=== PATIENT | male | born 1995 | race Caucasian/White ===

== ENCOUNTER 2017-10-25 23:07 | Emergency (ER) | payer MEDICAID, SELFPAY ==
[2017-10-25 23:08] VITALS: BP 148/87; PULSE 102; RESP 16; TEMP 36.4; O2SAT 96; BMI 33.0
--- NOTE | 2017-10-26 00:05 | ED.VISSUMM ---
- ER Visit Summary Date of Service: 10/26/17 Chief Complaint: Left thumb laceration History of Present Illness: The patient is a 21 M with no medical history who presents for a left thumb laceration that occurred 8 hours ago at work. Patient was opening packaging, and the knife slipped, slicing his left thumb. He controlled the bleeding and covered it, finishing his shift. Now he presents for evaluation. He states it hurt when it first occurred, but presently he has no pain. No loss of function. Tetanus was updated last year. Patient is right-handed. Physical Examination: An alert, in no distress. No increased work of breathing. Left hand shows a 13 mm superficial laceration to the palmar surface of the distal left thumb. Mild gaping of the incision. Distal sensation and cap refill are intact. Patient has full active flexion and extension of the IP joint. Remainder of exam unremarkable. Test Results: [] Emergency Department Course and Treatment: Patient presents with a superficial laceration to his left thumb. Patient had already copiously irrigated it with tap water. Given that the laceration was superficial and small, 1% lidocaine was used to locally block the incision site rather than performing a digital block. After anesthesia was achieved, the edges were approximated using 3 simple interrupted sutures, 5-0 Ethilon. Patient tolerated the procedure well. Bacitracin was applied and the wound was dressed. Patient was given wound care instructions and will have the sutures removed in 7-10 days. Patient was discharged home. Treatment Plan: [] Disposition: [] Impression: 13 mm left thumb laceration This note was generated with [employer] dictation software. It may contain incorrect words, spelling, and punctuation that were not noted in review of the chart prior to signing ED Disposition - Plan for ED Patient: Disposition: Home or Assisted Living Chief Complaint: Laceration Instructions: ED Laceration Hand Referrals: Derrick Downey MD [NON-STAFF] - Additional Instructions: Keep your thumb clean and well protected. Do not soak it in any dirty water. Have the sutures removed in 7-10 days by a healthcare provider. You have any concern for infection, such as pus draining from the incision, red streaking or severe pain, return for another evaluation. Use [id number] pain medication as needed for pain. If you have any worsening of your condition or any new concerning symptoms, please return immediately to the emergency department for another evaluation.
--- NOTE | 2017-10-26 00:50 | ED.DEP ---
ED Disposition - Plan for ED Patient: Disposition: Home or Assisted Living Chief Complaint: Laceration Instructions: ED Laceration Hand Referrals: Derrick Downey MD [Primary Care Provider] - Additional Instructions: Keep your thumb clean and well protected. Do not soak it in any dirty water. Have the sutures removed in 7-10 days by a healthcare provider. You have any concern for infection, such as pus draining from the incision, red streaking or severe pain, return for another evaluation. Use [id number] pain medication as needed for pain. If you have any worsening of your condition or any new concerning symptoms, please return immediately to the emergency department for another evaluation.
[2017-10-26 00:58] VITALS: BP 128/72; PULSE 87; RESP 18; O2SAT 96
== END 2017-10-26 00:58 | disposition home or self-care (01) ==
LOC: ED 10-26 00:57
PROVIDERS: Emergency Provider Emergency Medicine
DX: S61.012A Laceration without foreign body of left thumb without damage to nail, initial encounter (principal); W26.0XXA Contact with knife, initial encounter; Y93.89 Activity, other specified; Y92.89 Other specified places as the place of occurrence of the external cause; Y99.0 Civilian activity done for income or pay; Z72.0 Tobacco use
CPT/HCPCS: 12001; 99283

== ENCOUNTER 2017-12-09 09:22 | Emergency (ER) | payer MEDICAID, SELFPAY ==
[2017-12-09 09:22] VITALS: BP 146/90; PULSE 83; RESP 16; TEMP 36.7; O2SAT 98; BMI 33.7
--- NOTE | 2017-12-09 09:39 | CT_ITS ---
STUDY: CT BRAIN WITHOUT CONTRAST REASON FOR EXAM: Male, 22 years old. Frontal headache. RADIATION DOSAGE (If Supplied By Facility): CTDIvol = ( 44.99 ) mGy, DLP = ( 796.11 ) mGycm TECHNIQUE: Transaxial CT imaging of the brain was performed without administration of intravenous contrast material. Individualized dose optimization techniques were used for this CT. COMPARISON: None. FINDINGS: Normal soft tissue structures. Normal calvarium. Normal size ventricles and extra-axial spaces for the patient's age. Normal white matter tracts of the cerebral hemispheres. Normal basal ganglia and thalami. Normal brainstem. Normal cerebellum. There is no intracranial hemorrhage. There are no findings of an acute ischemic infarction. Normal visualized paranasal sinuses. There is a tube extending from the left mastoid air cells into the left middle ear. There is loss of aeration of the left mastoid air cells. CT/Brain/Head without Contrast IMPRESSION: No acute intracranial process as described above. Electronically Signed: Hemal Villanueva MD at 10:00 EDT Tel , Service support ,
--- NOTE | 2017-12-09 09:42 | ED.DCSUM_ITS ---
- ER Visit Summary Date of Service: 12/09/17 Chief Complaint: [] Frontal headache for 5 months intermittently History of Present Illness: The patient is a 22 M [] ports paroxysms of headaches frontally located for 5 months no fever no cough no head trauma #6 paresthesias no change in vision or neck stiffness no chest or abdominal pain review of systems are negative no medications no past history non-smoker no drug use no family history of any DOOR ASSEMBLER disorders or personal history Works when he gets a headache it is quite intense usually resolves ibuprofen he was scheduled to see a physician sometime later this month but he had occurrence of the headache today and his family made him come into the emergency department as he has not been evaluated again review of systems are negative works as a cook Physical Examination: [] Vital signs are within normal range is afebrile he is resting cupping the bed he points directly to the frontal forehead is a focus of the pain his extraocular movements are full his vision is normal his neck is supple HEENT exam normal speech is normal cranial nerves normal neck supple lungs clear heart tones normal abdomen soft nontender upper lower extremities unremarkable his strength and sensation are normal his gait is strong sitting stable no nystagmus no cerebellar findings Test Results: [] Emergency Department Course and Treatment: [] Given his complaints and his age and the duration of his headache a CT scan is obtained of head CT showed nothing acute there is a tube extending from the left mastoid air cell into the canal see that report but again nothing acute the patient did not recall that I reviewed that finding with him at this time explained to him the fact that he needs further outpatient management that there is nothing at this time to suggest a life-threatening cause to his headaches but he may require more definitive management head CT referral to neurology etc. he has an appointment see primary care physician he will be started on Motrin 600 3 times daily he will return for change in symptoms he is very comfort with this plan will follow-up and agrees to outpatient management Treatment Plan: [] Disposition: [] Home stable Impression: [] Headache intermittently for 5 months This note was generated with [employer] software. It may contain incorrect words, spelling, and punctuation that were not noted in review of the chart prior to signing ED Disposition - Plan for ED Patient: Chief Complaint: Headache Referrals: Care Physician,No Primary [Primary Care Provider] -
--- NOTE | 2017-12-09 10:20 | ED.DEP ---
ED Disposition - Plan for ED Patient: Chief Complaint: Headache Instructions: ED Cephalgia Unspecified Prescriptions: Naproxen [Naprosyn] 500 mg PO BID PRN #20 tab Referrals: Care Physician,No Primary [Primary Care Provider] - Mark Bass MD [STAFF PHYSICIAN] -
[2017-12-09 10:27] VITALS: PULSE 79; RESP 14; O2SAT 97
[2017-12-09] MEDS: Naproxen 500 MG Tablet PO (10:27)
== END 2017-12-09 10:28 | disposition home or self-care (01) ==
LOC: ED 10:00
PROVIDERS: Emergency Provider Emergency Medicine
DX: R51 Headache (principal)
CPT/HCPCS: 70450; 99283

== ENCOUNTER 2018-05-02 00:27 | Emergency (ER) | payer SELFPAY ==
[2018-05-02 00:29] VITALS: BP 145/89; PULSE 100; RESP 17; TEMP 36.7; O2SAT 94; BMI 35.8
--- NOTE | 2018-05-02 00:59 | RAD_ITS ---
STUDY: X-RAY - LUMBAR SPINE REASON FOR EXAM: Male, 22 years old. LOW BACK PAIN TECHNIQUE: 3 view(s) of the lumbar spine were obtained. COMPARISON: None FINDINGS: Normal lumbar lordosis. There is no substantial scoliosis. There is a normal alignment of the vertebrae. Normal vertebral bodies and endplates. Normal disc space heights. The soft tissue structures are unremarkable. RAD/Lumbar Spine 2 or 3 Views IMPRESSION: Normal x-ray examination of the lumbar spine. Electronically Signed: Seferino Spring MD at 2:01 EST Tel , Service support ,
--- NOTE | 2018-05-02 00:59 | RAD_ITS ---
STUDY: X-RAY - LEFT FOOT CLINICAL: Male, 22 years old. Foot pain TECHNIQUE: 3 view(s) of the foot. COMPARISON: None. FINDINGS: Normal talus, calcaneus, and tarsal bones. Normal visualized subtalar, talonavicular, calcaneocuboid, tarsal and tarsometatarsal articulations. Normal metatarsi. Normal metatarsophalangeal joint of the great toe. Normal tibial and fibular sesamoid bones. Normal interphalangeal joint of the great toe. Normal phalanges of the great toe. Normal second through fifth metatarsophalangeal joints. Normal interphalangeal joints and phalanges of the lesser toes. The soft tissue structures are unremarkable. RAD/Foot min 3 Views IMPRESSION: Normal x-ray examination of the foot. Electronically Signed: Seferino Spring MD at 2:02 EST Tel , Service support ,
[2018-05-02] MEDS: HYDROcodone Bitartrate/Apap 5/325 Tablet PO (01:06)
[2018-05-02] MEDS: Naproxen 250 MG Tablet 500 MG PO (01:06)
--- NOTE | 2018-05-02 01:23 | ED.VISSUMM ---
- ER Visit Summary Date of Service: 05/02/18 Chief Complaint: [Back pain and left foot pain] History of Present Illness: The patient is a 22 M [presents to the emergency department complaint of pain in his back that started yesterday while at work. Patient states that he was putting boxes on skids and developed pain in his back. Patient states that he always has some low-grade back pain which she has had for years. Patient states the back will flareup from time to time. He does not want to claim this under workman's comp. Patient also states that he has had pain in his left foot for about 5 years. Patient states that he injured his foot 5 years ago twisting it and has had pain ever since. Patient is able to bear weight on it. Patient denies any pain rating down his legs. He denies any change in bowel or bladder function. He denies weakness the extremities. Patient denies fever. He denies dysuria ,urgency, or frequency] Physical Examination: [HEENT-PERRLA, EOMI. Cranial nerves II through XII grossly intact. TMs clear. Mucous membranes moist. No adenopathy. Cardiovascular-regular rate and rhythm without murmur or ectopy Lungs-clear to auscultation, chest wall stable without crepitus or subcu emphysema Abdomen-normoactive bowel sounds, soft, nontender, no rebound or rigidity, no peritoneal signs. Back exam-patient has diffuse tenderness palpation over the lumbar spine and paraspinal musculature that reproduces his pain. Patient has negative straight leg raises. Deep tendon reflexes are plus 2 out of 4 bilaterally at the patella and Achilles. Patient has normal L5 extension. Patient has normal sensation to light touch. Extremities-intact ?4, normal range of motion, normal pulses, atraumatic. Left foot-patient has diffuse tenderness palpation over the first metatarsal and the articulation with the carpal bones. He is neurovascularly intact. No soft tissue swelling or edema noted. No erythema or cellulitis.] Test Results: [X-rays of the lumbar spine were normal and x-rays of the left foot were normal] Emergency Department Course and Treatment: [Patient was medicated with [place], Flexeril, Naprosyn.] Treatment Plan: [Patient will be given a prescription for Flexeril, Naprosyn, [place]. 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 It may contain incorrect words, spelling, and punctuation that were not noted in review of the chart prior to signing ED Disposition - Plan for ED Patient: Chief Complaint: Back Referrals: Care Physician,No Primary [Primary Care Provider] -
--- NOTE | 2018-05-02 01:45 | ED.DEP ---
ED Disposition - Plan for ED Patient: Chief Complaint: Back Instructions: ED Sprain Strain Lumbar Prescriptions: Hydrocodone Bitart/Apap 5-325 [[place] 5MG-325MG] 1 tab PO Q4H PRN PRN 2 Days #10 tab PRN Reason: Pain Naproxen [Naprosyn] 500 mg PO BID PRN #20 tab Cyclobenzaprine [Flexeril] 10 mg PO TID PRN #20 tab PRN Reason: Muscle Spasm Referrals: Care Physician,No Primary [Primary Care Provider] - Billy Harkins DO [NON CLINICAL AFFILIATE] - 5-7 Days
--- NOTE | 2018-05-02 02:16 | ED.RN ---
CALLED KOTA FROM [facility], THIS PT STATED HE WAS TESTED AT WORK, KOTA SAID IF HE WAS TESTED AT WORK THEN SHE DOES NOT NEED TO COME IN TONIGHT.
[2018-05-02 02:37] VITALS: BP 129/59; PULSE 84; RESP 16; O2SAT 97
--- NOTE | 2018-05-02 02:37 | ED.RN ---
THIS NURSE REVIEWED D/C INSTRUCTIONS WITH PT. PT VERBALIZED UNDERSTANDING OF INSTRUCTIONS. PT DENIES FURTHER NEEDS OR QUESTIONS AT THIS TIME. PT AMBULATES FROM ROOM ON OWN WITHOUT ASSISTANCE FROM STAFF
--- OUTSIDE RECORDS SUMMARY | 2018-08-03 06:38 | XMS RPT_ITS ---
:1995 Author Organization OH[facility] Care Team Providers Name Role Phone Primay Care Physicia, No Primary Care Unavailable Jenny Kyle Attending Unavailable Royer Del Real Attending Unavailable Primay Care Physicia, No Referring Unavailable Royer Del Real Attending Unavailable Primay Care Physicia, No Referring Unavailable Kiana Puente Attending Unavailable Primay Care Physicia, No Primary Care Unavailable Primay Care Physicia, No Primary Care Unavailable Leed, [place] Attending Unavailable PROBLEMS PROBLEMS DATE TYPE CONDITION / CODE ATTENDING STATUS SOURCE 05/22/2018 Unknown S39.012A - Royer Hoffman Active [place] of muscle, fascia Community and tendon of Hospital lower back, Repository initial encounter / S39.012A(ICD-10) 05/24/2018 Unknown M54.9 - Ungur, Faraus Active [place] Dorsalgia, Community unspecified / Hospital M54.9(ICD-10) Repository PROCEDURES PROCEDURES No Procedure Records FoundRESULTS RESULTS URGENT CARE VISIT Observed: 05/10/2018 Status: F Source: [place] REPORT 12:48 PM [facility] REPOSITORY [facility] [place] [address] OFFICE VISIT Date of Service: 05/10/18 MR#: [id number] Acct: [id number] Name: FREDERICK MEAD Rep #: [id number] : 1995 Provider: Royer MARIE Age/Sex: 22/M Location: [facility] Status: Signed Intake Vital Signs05/10/18 Body Mass Index (BMI) 35.8 05/10/18 Height 6 ft 4 in 05/10/18 Weight: 299 lb 05/10/18 Body Mass Index (BMI) 36.3 05/10/18 Blood Pressure 132/84 H Intake Visit Reasons: GOJO/BACK INJURY Chief Complaint: Recheck low back pain 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 Patient notes since his last evaluation here he has noted mild decrease in low back pain without caudal or radicular complaints. He notes he has been working within the work restrictions without difficulty. Notes his pain is aggravated to touch and with range of motion at the waist alleviated with rest and compliance with home range of motion exercises. He notes no other associated symptoms and no other alleviating or aggravating factors. ROS Const Constitutional: No other (ROS negative x10 other than as noted above) Exam Const General: cooperative, healthy appearing, no acute distress, comfortable Orientation: alert, awake, oriented x3 Chest Chest palpation AND inspection: normal inspection of the chest Resp Effort AND Inspection: normal respiratory effort, able to speak in complete sentences, symmetric chest movement Cardio Rate: regular rate Pulses: radial pulses present Musc Thoracic/Lumbar Spine: thoracic and lumbar spine normal to inspection, thoraco-lumbar ROM normal (With pain upon flexion extension at the waist), straight leg raise positive bilaterally, no thoraco-lumbar spasm, no thoracic spinal tenderness, no lumbar spinal tenderness, paraspinal tenderness bilaterally in the upper lumbar, in the mid lumbar and in the lower lumbar Skin General: no rashes or lesions noted Neuro General: alert, awake, oriented x3, gait normal Cognition: normal cognition Speech: speech normal Gait: normal gait Motor: muscle tone normal throughout Sensory Exam: no sensory deficits noted Psych Appearance: grossly normal Mental Status: mental status grossly normal Mood: congruent mood Affect: normal affect Speech and Movement: speech and movement normal Attitude: cooperative Thought Process: normal Thought Content: normal Judgment: judgment good Assessment AND Plan Problems 1. Lumbar strain S39.012A Plan See revised return to work restrictions effective today, then return to work without restrictions effective 05/17/2018. Continue home range of motion exercises, naproxen, and cyclobenzaprine as needed for symptomatic relief. Follow-up with the now clinic on 05/17/2018, sooner should symptoms worsen or any other concerns develop. Patient states acknowledging understanding all the above. This note was generated with [employer] dictation software. It may contain incorrect words, spelling, and punctuation that were not noted in checking the note before signing. Coding Level of Care Code Off vis,est,level 3 Diagnoses Lumbar strain S39.012A 05/10/18 1248 <Electronically signed by Royer MARIE> Date [facility] Signature: Date (if applicable) CC: URGENT CARE VISIT Observed: 05/02/2018 Status: F Source: [place] REPORT 2:46 PM [facility] REPOSITORY [facility] [address] [place] [address] OFFICE VISIT Date of Service: 05/02/18 MR#: [id number] Acct: [id number] Name: FREDERICK MEAD Rep #: [id number] : 1995 Provider: Royer MARIE Age/Sex: 22/M Location: [facility] Status: Signed with Addenda ADDENDUM by Royer MARIE on 05/02/18 at 1446 Addendum entered and electronically signed by FRANK Au 05/02/18 14:46: dx: Lumbar strain HPI Details: FREDERICK MEAD, is a 22 M who presents to the office today for Assessment AND Plan Plan - FRANK Au See revised return to work restrictions as noted on today's [employer]. Ibuprofen as instructed today. Home range of motion exercises as instructed today. Follow-up with the now clinic in 1 week for reevaluation, sooner should symptoms worsen or any other concerns develop. Patient states acknowledging understanding all the above. This note was generated with [employer] dictation software. It may contain incorrect words, spelling, and punctuation that were not noted in checking the note before signing. 05/02/18 1446 <Electronically signed by Royer MARIE> Date Royer Del Real cc: * Signed Intake Vital Signs05/02/18 Body Mass Index (BMI) 35.8 05/02/18 Height 6 ft 4 in 05/02/18 Weight: 299 lb 05/02/18 Body Mass Index (BMI) 36.3 05/02/18 Blood Pressure 130/80 H Intake Visit Reasons: ER F/U/GOJO/BACK INJURY Chief Complaint: Low back pain Allergies No Known Allergies Allergy (Verified 05/02/18 00:28) Medications Cyclobenzaprine [Flexeril] 10 mg PO TID PRN #20 tab 05/02/18 [Rx] Hydrocodone Bitart/Apap 5-325 [Crane 5MG-325MG] 1 tab PO Q4H PRN PRN 2 Days #10 tab 05/02/18 [Rx] Naproxen [Naprosyn] 500 mg PO BID PRN #20 tab 05/02/18 [Rx] PFSH Social History Smoking Status: Current every day smoker alcohol intake: never HPI HPI Chief Complaint: Low back pain Details: FREDERICK MEAD, is a 22 M who presents to the office today for follow-up status post low back injury suffered on 05/01/2018 while at work patient so states. Patient notes on date of injury while repetitively lifting boxes of soap, developing low back pain. He notes no caudal or radicular complaints. He reported to [facility]'s emergency room on date of injury where he was treated and released the morning of 05/02/2018 with a diagnosis of lumbar strain and given work restrictions. He is here for follow- up per employer recommendation. He notes no caudal or radicular complaints. He notes his moderate severe aching 6/10 low back pain is aggravated to touch and with flexion extension at the waist alleviated minimally with sitting and resting. He notes no other associated symptoms no other alleviating or aggravating factors. ROS Const Constitutional: No other (ROS negative x10 other than as noted above) Exam Const General: cooperative, healthy appearing, no acute distress Nutritional Appearance: average body habitus Orientation: alert, awake, oriented x3 HENMT Head: normal to inspection Ears: hearing grossly normal bilaterally, external ears normal Nose: external nose normal Eyes General: appearance normal, both eyes and all related structures Neck Neck: normal visual inspection, full ROM Lymphatic: no lymphadenopathy noted Chest Chest palpation AND inspection: normal inspection of the chest Resp Effort AND Inspection: normal respiratory effort, able to speak in complete sentences, symmetric chest movement, cough Cardio Rate: regular rate Pulses: radial pulses present GI Inspection: normal to inspection Palpation: soft, no guarding, nontender, not firm Musc Cervical Spine: normal cervical lordosis and cervical ROM normal Thoracic/Lumbar Spine: thoracic and lumbar spine normal to inspection, thoraco-lumbar ROM normal, no thoraco-lumbar spasm, no lumbar spinal tenderness, no thoracic spinal tenderness, paraspinal tenderness bilaterally in the upper lumbar, in the mid lumbar and in the lower lumbar Skin General: no rashes or lesions noted Neuro General: alert, awake, oriented x3, gait normal Cognition: normal cognition Speech: speech normal Gait: normal gait Motor: muscle tone normal throughout Sensory Exam: no sensory deficits noted Psych Appearance: grossly normal Mental Status: mental status grossly normal Mood: congruent mood Affect: normal affect Speech and Movement: speech and movement normal Attitude: cooperative Thought Process: normal Thought Content: normal Judgment: judgment good Assessment AND Plan Plan See revised return to work restrictions as noted on today's [employer] 14. Ibuprofen as instructed today. Home range of motion exercises as instructed today. Follow-up with the now clinic in 1 week for reevaluation, sooner should symptoms worsen or any other concerns develop. Patient states acknowledging understanding all the above. This note was generated with [employer] dictation software. It may contain incorrect words, spelling, and punctuation that were not noted in checking the note before signing. Coding Level of Care Code Off vis,est,level 3 05/02/18 9637 <Electronically signed by Royer MARIE> Date Royer MARIE Cosigner Signature: Date (if applicable) CC: EMERGENCY DEPARTMENT Observed: 05/02/2018 Status: F Source: [place] SUMMARY 6:47 AM [facility] REPOSITORY [facility] Medical Records Department [address] [place] [address] Emergency Department Summary 05/02/18 0123 MR#: [id number] Acct: [id number] Name: FREDERICK MEAD Rep #: [id number] : 1995 22 From: Jenny Kyle DO PCP: Care Physician, No Primary Status: DEP ER - ER Visit Summary Date of Service: 05/02/18 Chief Complaint: [Back pain and left foot pain] History of Present Illness: The patient is a 22 M [presents to the emergency department complaint of pain in his back that started yesterday while at work. Patient states that he was putting boxes on skids and developed pain in his back. Patient states that he always has some low-grade back pain which she has had for years. Patient states the back will flareup from time to time. He does not want to claim this under workman's comp. Patient also states that he has had pain in his left foot for about 5 years. Patient states that he injured his foot 5 years ago twisting it and has had pain ever since. Patient is able to bear weight on it. Patient denies any pain rating down his legs. He denies any change in bowel or bladder function. He denies weakness the extremities. Patient denies fever. He denies dysuria ,urgency, or frequency] Physical Examination: [HEENT-PERRLA, EOMI. Cranial nerves II through XII grossly intact. TMs clear. Mucous membranes moist. No adenopathy. Cardiovascular-regular rate and rhythm without murmur or ectopy Lungs-clear to auscultation, chest wall stable without crepitus or subcu emphysema Abdomen-normoactive bowel sounds, soft, nontender, no rebound or rigidity, no peritoneal signs. Back exam-patient has diffuse tenderness palpation over the lumbar spine and paraspinal musculature that reproduces his pain. Patient has negative straight leg raises. Deep tendon reflexes are plus 2 out of 4 bilaterally at the patella and Achilles. Patient has normal L5 extension. Patient has normal sensation to light touch. Extremities-intact 4, normal range of motion, normal pulses, atraumatic. Left foot-patient has diffuse tenderness palpation over the first metatarsal and the articulation with the carpal bones. He is neurovascularly intact. No soft tissue swelling or edema noted. No erythema or cellulitis.] Test Results: [X-rays of the lumbar spine were normal and x-rays of the left foot were normal] Emergency Department Course and Treatment: [Patient was medicated with Crane, Flexeril, Naprosyn.] Treatment Plan: [Patient will be given a prescription for Flexeril, Naprosyn, Crane. Patient advised to follow-up with physician masonry supervisor for no doc within the next 5-7 days] Disposition: [Discharged home in stable condition] Impression: [Lumbosacral strain Left foot pain-acute on chronic] This note was generated with [employer] software. It may contain incorrect words, spelling, and punctuation that were not noted in review of the chart prior to signing ED Disposition - Plan for ED Patient: Chief Complaint: Back Referrals: Care Physician,No Primary [Primary Care Provider] - What to do if you have Problems For any increased pain, shortness of breath, bleeding, nausea or vomiting, chest pain, or any unexpected problems, contact your Primary Care Provider. Call [facility] ([phone]) or report to the closest Emergency Room. Call 911 if necessary. 05/02/18 0647 <Electronically signed by Jenny Kyle DO> Date Jenny Kyle DO Cosigner Signature (If Indicated): Date CC: No Primary Care Physician DISCHARGE INSTRUCTION Observed: 05/02/2018 Status: F Source: [place] 1:47 AM [facility] REPOSITORY [facility] Medical Records Department [address] [place] [address] Discharge Instruction 05/02/18 0145 MR#: [id number] Acct: [id number] Name: FREDERICK MEAD Rep #: [id number] : 1995 22 From: Jenny Kyle DO PCP: Care Physician, No Primary Status: REG ER ED Disposition - Plan for ED Patient: Chief Complaint: Back Instructions: ED Sprain Strain Lumbar Prescriptions: Hydrocodone Bitart/Apap 5-325 [Crane 5MG-325MG] 1 tab PO Q4H PRN PRN 2 Days #10 tab PRN Reason: Pain Naproxen [Naprosyn] 500 mg PO BID PRN #20 tab Cyclobenzaprine [Flexeril] 10 mg PO TID PRN #20 tab PRN Reason: Muscle Spasm Referrals: Care Physician,No Primary [Primary Care Provider] - Billy Harkins DO [NON CLINICAL AFFILIATE] - 5-7 Days What to do if you have Problems For any increased pain, shortness of breath, bleeding, nausea or vomiting, chest pain, or any unexpected problems, contact your Primary Care Provider. Call [facility] ([phone]) or report to the closest Emergency Room. Call 911 if necessary. 05/02/18 0147 <Electronically signed by Jenny Kyle DO> Date Jenny Kyle DO Cosigner Signature (If Indicated): Date CC: No Primary Care Physician LUMBAR SPINE 2 OR 3 Observed: 05/02/2018 Status: F Source: [place] VIEWS 1:00 AM [facility] REPOSITORY [facility] Imaging Services [address] [place] [address] Lumbar Spine 2 or 3 Views MR#: [id number] Acct: [id number] Name: FREDERICK MEAD Rep #: [id number] : 1995 M 22 From: Seferino Spring MD PCP: Care Physician, No Primary Status: REG ER Study: Lumbar Spine 2 or 3 Views Date of Exam: 05/02/18 Exam# [id number] Ordering Dr: Jenny Kyle DO STUDY: X-RAY - LUMBAR SPINE REASON FOR EXAM: Male, 22 years old. LOW BACK PAIN TECHNIQUE: 3 view(s) of the lumbar spine were obtained. COMPARISON: None FINDINGS: Normal lumbar lordosis. There is no substantial scoliosis. There is a normal alignment of the vertebrae. Normal vertebral bodies and endplates. Normal disc space heights. The soft tissue structures are unremarkable. RAD/Lumbar Spine 2 or 3 Views IMPRESSION: Normal x-ray examination of the lumbar spine. Electronically Signed: Seferino Spring MD at 2:01 EST Tel , Service support , CC: No Primary Care Physician; Jenny Kyle DO Fax Machine Operator: Signed FOOT MIN 3 VIEWS Observed: 05/02/2018 Status: F Source: [place] 1:00 AM [facility] REPOSITORY [facility] Imaging Services [address] [place] [address] Foot min 3 Views MR#: [id number] Acct: [id number] Name: FREDERICK MEAD Rep #: [id number] : 1995 M 22 From: Seferino Spring MD PCP: Care Physician, No Primary Status: REG ER Study: Foot min 3 Views Date of Exam: 05/02/18 Exam# [id number] Ordering Dr: Jenny Kyle DO STUDY: X-RAY - LEFT FOOT CLINICAL: Male, 22 years old. Foot pain TECHNIQUE: 3 view(s) of the foot. COMPARISON: None. FINDINGS: Normal talus, calcaneus, and tarsal bones. Normal visualized subtalar, talonavicular, calcaneocuboid, tarsal and tarsometatarsal articulations. Normal metatarsi. Normal metatarsophalangeal joint of the great toe. Normal tibial and fibular sesamoid bones. Normal interphalangeal joint of the great toe. Normal phalanges of the great toe. Normal second through fifth metatarsophalangeal joints. Normal interphalangeal joints and phalanges of the lesser toes. The soft tissue structures are unremarkable. RAD/Foot min 3 Views IMPRESSION: Normal x-ray examination of the foot. Electronically Signed: Seferino Spring MD at 2:02 EST Tel , Service support , CC: No Primary Care Physician; Jenny Kyle DO Fax Machine Operator: Signed EMERGENCY DEPARTMENT Observed: 12/09/2017 Status: F Source: [place] SUMMARY 3:01 PM [facility] REPOSITORY [facility] Medical Records Department [address] [place] [address] Emergency Department Summary 12/09/17 0940 MR#: [id number] Acct: [id number] Name: FREDERICK MEAD Rep #: [id number] : 1995 22 From: Consuelo Montez MD PCP: Care Physician, No Primary Status: DEP ER - ER Visit Summary Date of Service: 12/09/17 Chief Complaint: [] Frontal headache for 5 months intermittently History of Present Illness: The patient is a 22 M [] ports paroxysms of headaches frontally located for 5 months no fever no cough no head trauma #6 paresthesias no change in vision or neck stiffness no chest or abdominal pain review of systems are negative no medications no past history non-smoker no drug use no 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 Works when he gets a headache it is quite intense usually resolves ibuprofen he was scheduled to see a physician sometime later this month but he had occurrence of the headache today and his family made him come into the emergency department as he has not been evaluated again review of systems are negative works as a [employer] Physical Examination: [] Vital signs are within normal range is afebrile he is resting cupping the bed he points directly to the frontal forehead is a focus of the pain his extraocular movements are full his vision is normal his neck is supple HEENT exam normal speech is normal cranial nerves normal neck supple lungs clear heart tones normal abdomen soft nontender upper lower extremities unremarkable his strength and sensation are normal his gait is strong sitting stable no nystagmus no cerebellar findings Test Results: [] Emergency Department Course and Treatment: [] Given his complaints and his age and the duration of his headache a CT scan is obtained of head CT showed nothing acute there is a tube extending from the left mastoid air cell into the canal see that report but again nothing acute the patient did not recall that I reviewed that finding with him at this time explained to him the fact that he needs further outpatient management that there is nothing at this time to suggest a life-threatening cause to his headaches but he may require more definitive management head CT referral to neurology etc. he has an appointment see primary care physician he will be started on Motrin 600 3 times daily he will return for change in symptoms he is very comfort with this plan will follow-up and agrees to outpatient management Treatment Plan: [] Disposition: [] Home stable Impression: [] Headache intermittently for 5 months This note was generated with [employer] software. It may contain incorrect words, spelling, and punctuation that were not noted in review of the chart prior to signing ED Disposition - Plan for ED Patient: Chief Complaint: Headache Referrals: Na Physician,No Primary [Primary Care Provider] - What to do if you have Problems For any increased pain, shortness of breath, bleeding, nausea or vomiting, chest pain, or any unexpected problems, contact your Primary Care Provider. Call [employer] [facility] ([phone]) or report to the closest Emergency Room. Call 911 if necessary. 12/09/17 1501 <Electronically signed by Consuelo Montez MD> Date Consuelo Montez MD Cosigner Signature (If Indicated): Date CC: No Primary Care Physician DISCHARGE INSTRUCTION Observed: 12/09/2017 Status: F Source: [place] 10:21 AM [facility] REPOSITORY [facility] Medical Records Department [address] [place] [address] Discharge Instruction 12/09/17 1020 MR#: [id number] Acct: [id number] Name: FREDERICK MEAD Rep #: [id number] : 1995 22 From: Consuelo Montez MD PCP: Care Physician, No Primary Status: REG ER ED Disposition - Plan for ED Patient: Chief Complaint: Headache Instructions: ED Cephalgia Unspecified Prescriptions: Naproxen [Naprosyn] 500 mg PO BID PRN #20 tab Referrals: Care Physician,No Primary [Primary Care Provider] - Mark Bass MD [STAFF PHYSICIAN] - What to do if you have Problems For any increased pain, shortness of breath, bleeding, nausea or vomiting, chest pain, or any unexpected problems, contact your Primary Care Provider. Call [facility] ([phone]) or report to the closest Emergency Room. Call 911 if necessary. 12/09/17 1021 <Electronically signed by Consuelo Montez MD> Date Consuelo Montez MD Cosigner Signature (If Indicated): Date CC: No Primary Care Physician BRAIN/HEAD WITHOUT Observed: 12/09/2017 Status: F Source: [place] CONTRAST 9:40 AM [facility] REPOSITORY [facility] Imaging Services [address] [place] [address] Brain/Head without Contrast MR#: [id number] Acct: [id number] Name: FREDERICK MEAD Rep #: [id number] : 1995 M 22 From: Hemal Villanueva MD PCP: Na Physician, No Primary Status: REG ER Study: Brain/Head without Contrast Date of Exam: 12/09/17 Exam# [id number] Ordering Dr: Consuelo Montez MD STUDY: CT BRAIN WITHOUT CONTRAST REASON FOR EXAM: Male, 22 years old. Frontal headache. RADIATION DOSAGE (If Supplied By Facility): CTDIvol = ( 44.99 ) mGy, DLP = ( 796.11 ) mGycm TECHNIQUE: Transaxial CT imaging of the brain was performed without administration of intravenous contrast material. Individualized dose optimization techniques were used for this CT. COMPARISON: None. FINDINGS: Normal soft tissue structures. Normal calvarium. Normal size ventricles and extra-axial spaces for the patient's age. Normal white matter tracts of the cerebral hemispheres. Normal basal ganglia and thalami. Normal brainstem. Normal cerebellum. There is no intracranial hemorrhage. There are no findings of an acute ischemic infarction. Normal visualized paranasal sinuses. There is a tube extending from the left mastoid air cells into the left middle ear. There is loss of aeration of the left mastoid air cells. CT/Brain/Head without Contrast IMPRESSION: No acute intracranial process as described above. Electronically Signed: Hemal Villanueva MD at 10:00 EDT Tel , Service support , CC: MD Devorah Montez; No Primary Care Physician Fax Machine Operator: Signed PROGRESS Observed: 11/01/2017 Status: COMPLETED Source: [place] 5:02 PM [facility] REPOSITORY HNO ID: [id number] Author: Cintia Patton Service: (none) Author Type: Nurse Practitioner Type: Progress Notes Filed: 11/01/2017 5:04 PM Note Text: Subjective HPI Pt presents with request for suture removal. Had 3 sutures placed in left thumb 1 week ago. Was instructed to have removed at an urgent care setting. States wound has healed well with no complications. Review of Systems Constitutional: Negative for chills and fever. Skin: Negative for rash. Objective Physical Exam Constitutional: He is well-developed, well-nourished, and in no distress. Skin: Skin is warm and dry. 3 sutures removed from left thumb. Wound closed, well approximated. No signs of secondary infection. Sutures fully intact after removal. Pt tolerated well. Area cleansed and bandage applied. BP 124/72 Pulse 78 Temp 36.7 ?C (98.1 ?F) (Tympanic) Resp 16 Wt 124.7 kg (275 lb) BMI 34.37 kg/m? .Patient presents with: Suture Removal: left thumb, 3 sutures, applied 1 week ago PAST MEDICAL HISTORY Diagnosis Date - Attention deficit disorder with hyperactivity(314.01) - PMH - PAST MEDICAL HISTORY OF ocd - PMH - PAST MEDICAL HISTORY OF tourettes - Smoker 12/23/2015 PAST SURGICAL HISTORY Procedure Laterality Date - COLONOSCOP W/ OR W/O [facility] SPEC 01/27/2016 Colonoscopy - PAST SURGICAL HISTORY OF 2011 hypospadias ALLERGIES Bactrim [Sulfamethoxazole-Trimethoprim] MEDICATIONS benzonatate (TESSALON PERLE) 100 mg capsule Take 2 capsules by mouth three times daily as needed. albuterol HFA (VENTOLIN HFA) 90 mcg/actuation inhaler Inhale 2 Puffs as instructed every 4 hours as needed for Wheezing/Shortness of Breath. ibuprofen (MOTRIN) 800 mg tablet Take 800 mg by mouth every 6 hours as needed. polyethylene glycol 3350 (MIRALAX, GLYCOLAX) 17 gram/dose powder Take 17 g by mouth once daily. This is one (1) capful. Put in at least 8oz of liquid each day. FAMILY HISTORY Problem Relation Age of Onset - None Father - Arthritis Mother - depression [Other] [OTHER] Mother - fibromyalgia [Other] [OTHER] Mother - Diabetes Maternal Grandfather - Hypertension Maternal Grandmother - ADD [Other] [OTHER] Mother Social History Substance Use Topics - Smoking status: Current Every Day Smoker Packs/day: 1.00 Years: 1.00 - Smokeless tobacco: Never Used Comment: smokes 5 cigarettes a day as of 12/23/15 - Alcohol use 3.0 oz/week 2 Cans of Beer (12oz) per week ASSESSMENT/PLAN: 1. Visit for suture removal - ICD9: V58.32, ICD10: Z48.02 The patient is instructed to return or seek emergency treatment if symptoms become worse or with any acute change in condition. The patient verbalizes understanding and is in agreement with plan of care. Cintia Patton, TARUN CNOV Observed: 11/01/2017 Status: COMPLETED Source: [place] 4:30 PM [facility] REPOSITORY Office Visit (WSTR) ROSALINDA,FREDERICK Martinez ([id number]) 1995 M Date Time Provider Department 11/01/17 4:30 PM CINTIA PATTON [facility] During your visit today, we recorded the following information about you: Temperature Pulse Respiration Blood pressure 98.1 degrees 78/minute 16/minute 124/72 Weight 124.7 kg Cintia Patton APRN.ASSISTANT SHIFT SUPERVISOR 11/01/2017 5:04 PM Signed Subjective HPI Pt presents with request for suture removal. Had 3 sutures placed in left thumb 1 week ago. Was instructed to have removed at an urgent care setting. States wound has healed well with no complications. Review of Systems Constitutional: Negative for chills and fever. Skin: Negative for rash. Objective Physical Exam Constitutional: He is well-developed, well-nourished, and in no distress. Skin: Skin is warm and dry. 3 sutures removed from left thumb. Wound closed, well approximated. No signs of secondary infection. Sutures fully intact after removal. Pt tolerated well. Area cleansed and bandage applied. BP 124/72 Pulse 78 Temp 36.7 ?C (98.1 ?F) (Tympanic) Resp 16 Wt 124.7 kg (275 lb) BMI 34.37 kg/m? 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 albuterol HFA (VENTOLIN HFA) 90 mcg/actuation inhaler Inhale 2 Puffs as instructed every 4 hours as needed for Wheezing/Shortness of Breath. ibuprofen (MOTRIN) 800 mg tablet Take 800 mg by mouth every 6 hours as needed. polyethylene glycol 3350 (MIRALAX, GLYCOLAX) 17 gram/dose powder Take 17 g by mouth once daily. This is one (1) capful. Put in at least 8oz of liquid each day. FAMILY HISTORY Problem Relation Age of Onset - None Father - Arthritis Mother - depression [Other] [OTHER] Mother - fibromyalgia [Other] [OTHER] Mother - Diabetes Maternal Grandfather - Hypertension Maternal Grandmother - ADD [Other] [OTHER] Mother Social History Substance Use Topics - Smoking status: Current Every Day Smoker Packs/day: 1.00 Years: 1.00 - Smokeless tobacco: Never Used Comment: smokes 5 cigarettes a day as of 12/23/15 - Alcohol use 3.0 oz/week 2 Cans of Beer (12oz) per week ASSESSMENT/PLAN: 1. Visit for suture removal - ICD9: V58.32, ICD10: Z48.02 The patient is instructed to return or seek emergency treatment if symptoms become worse or with any acute change in condition. The patient verbalizes understanding and is in agreement with plan of care. Cintia Patton CNP Referring Provider: SELF [[id number]] Allergies As of Date: 11/01/2017 Noted Allergy Reaction BACTRIM (SULFAMETHOXAZOLE-TRIMETH*05/18/2012 4 - Hives Comments: Patient seen in ER at [facility] on 05/18/12 for hives while on Bactrim and phenazodine following surgery Date Reviewed: 11/01/2017 Reviewed by: Esperanza Stewart Ma - Fully Assessed Reason for Visit: Suture Removal [105] Cmt: left thumb, 3 sutures, applied 1 week ago Primary Visit Diagnosis:Visit for suture removal [Z48.02] Prescriptions as of 11/01/2017 Sig: BENZONATATE 100 MG CAPSULE Take 2 capsules by mouth thre* Patient not taking: Reported on 11/01/2017 ALBUTEROL SULFATE HFA 90 MCG/* Inhale 2 Puffs as instructed * Patient not taking: Reported on 11/01/2017 IBUPROFEN 800 MG TABLET Take 800 mg by mouth every 6 * POLYETHYLENE GLYCOL 3350 17 G* Take 17 g by mouth once daily* Patient not taking: Reported on 11/01/2017 Problem List As Of Date 11/01/2017 Noted Resolved CONGENITAL PES PLANUS [Q66.50] INVALID FOR* Tendonitis [M77.9] INVALID FOR* Hypospadias [Q54.9] INVALID FOR*12/26/2012 ADHD (attention deficit hyperactivity disorder)*INVALID FOR* Meatal stenosis [N35.9] INVALID FOR* OCD (obsessive compulsive disorder) [F42.9] INVALID FOR* Tourette's [F95.2] INVALID FOR* Smoker [F17.200] INVALID FOR* Vitreous floaters of both eyes [H43.393] INVALID FOR* Meibomian gland dysfunction (MGD), bilateral, b*INVALID FOR* Punctate keratitis, bilateral [H16.143] INVALID FOR* Letter Text Cintia Patton APRN.CNP Urgent Care [address] [facility] [address] Dept: [phone] 11/01/2017 Frederick Mead [address] [place] [id number] To Whom it May Concern: This is to certify that Frederick Mead was seen at our office for medical care. If you have any questions please feel free to call. Sincerely: Cintia Patton APRN.CNP Encounter Status:Closed by CINTIA PATTON CNP on 11/01/17 EMERGENCY DEPARTMENT Observed: 10/26/2017 Status: F Source: [place] SUMMARY 3:14 AM [facility] Medical Records Department [address] [place] [address] Emergency Department Summary 10/26/17 0005 MR#: [id number] Acct: [id number] Name: FREDERICK MEAD Rep #: [id number] : 1995 21 From: Kiana Puente MD PCP: Care Physician, No Primary Status: DEP ER - ER Visit Summary Date of Service: 10/26/17 Chief Complaint: Left thumb laceration History of Present Illness: The patient is a 21 M with no medical history who presents for a left thumb laceration that occurred 8 hours ago at work. Patient was opening packaging, and the knife slipped, slicing his left thumb. He controlled the bleeding and covered it, finishing his shift. Now he presents for evaluation. He states it hurt when it first occurred, but presently he has no pain. No loss of function. Tetanus was updated last year. Patient is right-handed. Physical Examination: An alert, in no distress. No increased work of breathing. Left hand shows a 13 mm superficial laceration to the palmar surface of the distal left thumb. Mild gaping of the incision. Distal sensation and cap refill are intact. Patient has full active flexion and extension of the IP joint. Remainder of exam unremarkable. Test Results: [] Emergency Department Course and Treatment: Patient presents with a superficial laceration to his left thumb. Patient had already copiously irrigated it with tap water. Given that the laceration was superficial and small, 1% lidocaine was used to locally block the incision site rather than performing a digital block. After anesthesia was achieved, the edges were approximated using 3 simple interrupted sutures, 5-0 Ethilon. Patient tolerated the procedure well. Bacitracin was applied and the wound was dressed. Patient was given wound care instructions and will have the sutures removed in 7-10 days. Patient was discharged home. Treatment Plan: [] Disposition: [] Impression: 13 mm left thumb laceration This note was generated with [employer] dictation software. It may contain incorrect words, spelling, and punctuation that were not noted in review of the chart prior to signing ED Disposition - Plan for ED Patient: Disposition: Home or Assisted Living Chief Complaint: Laceration Instructions: ED Laceration Hand Referrals: Derrick Downey MD [NON-STAFF] - Additional Instructions: Keep your thumb clean and well protected. Do not soak it in any dirty water. Have the sutures removed in 7-10 days by a healthcare provider. You have any concern for infection, such as pus draining from the incision, red streaking or severe pain, return for another evaluation. Use [id number] pain medication as needed for pain. If you have any worsening of your condition or any new concerning symptoms, please return immediately to the emergency department for another evaluation. What to do if you have Problems For any increased pain, shortness of breath, bleeding, nausea or vomiting, chest pain, or any unexpected problems, contact your Primary Care Provider. Call [employer] [facility] ([phone]) or report to the closest Emergency Room. Call 911 if necessary. 10/26/17 0314 <Electronically signed by Kiana Puente MD> Date Kiana Puente MD Cosigner Signature (If Indicated): Date CC: No Primary Care Physician DISCHARGE INSTRUCTION Observed: 10/26/2017 Status: F Source: [place] 2:22 AM [facility] REPOSITORY [facility] Medical Records Department [address] [place] [address] Discharge Instruction 10/26/17 0050 MR#: [id number] Acct: [id number] Name: FREDERICK MEAD Rep #: [id number] : 1995 21 From: Kiana Puente MD PCP: Care Physician, No Primary Status: DEP ER ED Disposition - Plan for ED Patient: Disposition: Home or Assisted Living Chief Complaint: Laceration Instructions: ED Laceration Hand Referrals: Derrick Downey MD [Primary Care Provider] - Additional Instructions: Keep your thumb clean and well protected. Do not soak it in any dirty water. Have the sutures removed in 7-10 days by a healthcare provider. You have any concern for infection, such as pus draining from the incision, red streaking or severe pain, return for another evaluation. Use [id number] pain medication as needed for pain. If you have any worsening of your condition or any new concerning symptoms, please return immediately to the emergency department for another evaluation. What to do if you have Problems For any increased pain, shortness of breath, bleeding, nausea or vomiting, chest pain, or any unexpected problems, contact your Primary Care Provider. Call [facility] ([phone]) or report to the closest Emergency Room. Call 911 if necessary. 10/26/17 0222 <Electronically signed by Kiana Puente MD> Date Kiana Puente MD Cosigner Signature (If Indicated): Date CC: No Primary Care Physician GROUP A STREP BY Collected: 10/17/2017 Status: F Source: [place] PCR 11:40 AM [facility] REPOSITORY TYPE CODE TESTS RESULT OUT OF REFERENCE UNITS RANGE LAB [facility] Throat Swab GAS Specimen Source LAB PCRGAS Negative for Group A Strep Group A PCR Streptococcus by PCR. Result Comment: This test was developed and its performance characteristics determined by [facility] ([facility]). It has not been cleared or approved by the FDA. [facility] is regulated under CLIA as qualified to perform high-complexity testing. This test is used for clinical purposes. It should not be regarded as inv estigational or for research. Performed By: #### [facility] #### [facility] [address] [place], [place] [address] PROGRESS Observed: 10/17/2017 Status: COMPLETED Source: [place] 11:11 AM [facility] REPOSITORY HNO ID: [id number] Author: Wilfred (Dielectric Press Operator) Service: (none) Author Type: Nurse Practitioner Type: Progress Notes Filed: 10/17/2017 11:25 AM Note Text: Subjective HPI HPI Frederick Mead is a 21 year old male who presents today for CC of sore throat, body aches, nasal congestion, cough. This started 2 days. Has tried otc medication. Symptoms are worsened by nothing. Risk factors, sick exposures at work. Patient is an everyday smoker. .Patient presents with: Sore Throat: with congestion AND cough x 2 days PAST MEDICAL HISTORY Diagnosis Date - Attention deficit disorder with hyperactivity(314.01) - PMH - PAST MEDICAL HISTORY OF ocd - PMH - PAST MEDICAL HISTORY OF tourettes - Smoker 12/23/2015 PAST SURGICAL HISTORY Procedure Laterality Date - [facility] Colonoscopy - PAST SURGICAL HISTORY OF 2012 hypospadias ALLERGIES Bactrim [Sulfamethoxazole-Trimethoprim] MEDICATIONS benzonatate (TESSALON PERLE) 100 mg capsule Take 2 capsules by mouth three times daily as needed. albuterol HFA (VENTOLIN HFA) 90 mcg/actuation inhaler Inhale 2 Puffs as instructed every 4 hours as needed for Wheezing/Shortness of Breath. ibuprofen (MOTRIN) 800 mg tablet Take 800 mg by mouth every 6 hours as needed. polyethylene glycol 3350 (MIRALAX, GLYCOLAX) 17 gram/dose powder Take 17 g by mouth once daily. This is one (1) capful. Put in at least 8oz of liquid each day. FAMILY HISTORY Problem Relation Age of Onset - None Father - Arthritis Mother - depression [Other] [OTHER] Mother - fibromyalgia [Other] [OTHER] Mother - Diabetes Maternal Grandfather - Hypertension Maternal Grandmother - ADD [Other] [OTHER] Mother Social History Substance Use Topics - Smoking status: Current Every Day Smoker Packs/day: 1.00 Years: 1.00 - Smokeless tobacco: Never Used Comment: smokes 5 cigarettes a day as of 12/23/15 - Alcohol use 3.0 oz/week 2 Cans of Beer (12oz) per week Review of Systems Constitutional: Negative for chills, fever and weight loss. HENT: Positive for congestion and sore throat. Negative for ear pain and nosebleeds. Respiratory: Positive for cough and wheezing. Negative for shortness of breath. Cardiovascular: Negative for chest pain. Musculoskeletal: Negative for neck pain. Skin: Negative for itching and rash. Objective Blood pressure 98/80, pulse 86, temperature 36.8 ?C (98.3 ?F), temperature source Left Tympanic, resp. rate 16, weight 123.3 kg (271 lb 12.8 oz), SpO2 98 %. Physical Exam Constitutional: He is oriented to person, place, and time and well-developed, well-nourished, and in no distress. Non-toxic appearance. He does not have a sickly appearance. No distress. HENT: Head: Normocephalic and atraumatic. Right Ear: Hearing, tympanic membrane, external ear and ear canal normal. Left Ear: Hearing, tympanic membrane, external ear and ear canal normal. Nose: Nose normal. Mouth/Throat: Uvula is midline and mucous membranes are normal. Posterior oropharyngeal erythema present. No oropharyngeal exudate, posterior oropharyngeal edema or tonsillar abscesses. Eyes: Conjunctivae and lids are normal. Pupils are equal, round, and reactive to light. Right eye exhibits no discharge. Left eye exhibits no discharge. No scleral icterus. Neck: Trachea normal and normal range of motion. Neck supple. Cardiovascular: Normal rate, regular rhythm and normal heart sounds. Pulmonary/Chest: Effort normal and breath sounds normal. Lymphadenopathy: He has no cervical adenopathy. Neurological: He is alert and oriented to person, place, and time. Skin: No rash noted. He is not diaphoretic. ASSESSMENT/PLAN: 1. Sore throat - ICD9: 462, ICD10: J02.9 (primary diagnosis) - suspect viral - Rapid Strep negative in the office today and Throat culture pending - Discussed supportive care treatment with fluids, rest and analgesia. - The patient should follow up in 3-5 days if symptoms persist or worsen - Call back if drooling, increased temperature, symptoms of dehydration and/or still sick in one week - RAPID STREP TEST B/O - GROUP A STREPTOCOCCUS BY PCR 2. Viral URI with cough - ICD9: 465.9, ICD10: J06.9, B97.89 - Discussed viral etiology and rationale for treatment. - Rapid strep negative in office today - Symptomatic treatment with prn analgesia - Supportive care with fluids and rest -will give steroid to cover for wheeze, patient report - Follow up in 3-5 days if symptoms persist or sooner if worsening of symptoms Prescription instructions reviewed with patient as applicable. Patient advised if symptoms do not improve or if symptoms worsen sooner, to contact the office for further evaluation by their primary care physician. Potential red flag symptoms discussed with the patient. Reviewed appropriate action plan to take if red flag symptoms occur. Patient agreeable to treatment plan. Wilfred Ignacio APRN.TARUN CNOV Observed: 10/17/2017 Status: COMPLETED Source: [place] 11:00 AM [facility] REPOSITORY Office Visit (WSTR) ROSALINDA,FREDERICK Martinez ([id number]) 1995 M Date Time Provider Department 10/17/17 11:00 AM WILFRED IGNACIO (TARUN) [facility] During your visit today, we recorded the following information about you: Temperature Pulse Respiration Blood pressure 98.3 degrees 86/minute 16/minute 98/80 Weight 123.3 kg Wilfred MateusMIRYAM.TARUN 10/17/2017 11:25 AM Signed Subjective HPI HPI Frederick Mead is a 21 year old male who presents today for CC of sore throat, body aches, nasal congestion, cough. This started 2 days. Has tried otc medication. Symptoms are worsened by nothing. Risk factors, sick exposures at work. Patient is an everyday smoker. .Patient presents with: Sore Throat: with congestion AND cough x 2 days PAST MEDICAL HISTORY Diagnosis Date - Attention deficit disorder with hyperactivity(314.01) - PMH - PAST MEDICAL HISTORY OF ocd - PMH - PAST MEDICAL HISTORY OF tourettes - Smoker 12/23/2015 PAST SURGICAL HISTORY Procedure Laterality Date - COLONOSCOP W/ OR W/O [facility] SPEC 01/27/2016 Colonoscopy - PAST SURGICAL HISTORY OF 2011 hypospadias ALLERGIES Bactrim [Sulfamethoxazole-Trimethoprim] MEDICATIONS benzonatate (TESSALON PERLE) 100 mg capsule Take 2 capsules by mouth three times daily as needed. albuterol HFA (VENTOLIN HFA) 90 mcg/actuation inhaler Inhale 2 Puffs as instructed every 4 hours as needed for Wheezing/Shortness of Breath. ibuprofen (MOTRIN) 800 mg tablet Take 800 mg by mouth every 6 hours as needed. polyethylene glycol 3350 (MIRALAX, GLYCOLAX) 17 gram/dose powder Take 17 g by mouth once daily. This is one (1) capful. Put in at least 8oz of liquid each day. FAMILY HISTORY Problem Relation Age of Onset - None Father - Arthritis Mother - depression [Other] [OTHER] Mother - fibromyalgia [Other] [OTHER] Mother - Diabetes Maternal Grandfather - Hypertension Maternal Grandmother - ADD [Other] [OTHER] Mother Social History Substance Use Topics - Smoking status: Current Every Day Smoker Packs/day: 1.00 Years: 1.00 - Smokeless tobacco: Never Used Comment: smokes 5 cigarettes a day as of 12/23/15 - Alcohol use 3.0 oz/week 2 Cans of Beer (12oz) per week Review of Systems Constitutional: Negative for chills, fever and weight loss. HENT: Positive for congestion and sore throat. Negative for ear pain and nosebleeds. Respiratory: Positive for cough and wheezing. Negative for shortness of breath. Cardiovascular: Negative for chest pain. Musculoskeletal: Negative for neck pain. Skin: Negative for itching and rash. Objective Blood pressure 98/80, pulse 86, temperature 36.8 ?C (98.3 ?F), temperature source Left Tympanic, resp. rate 16, weight 123.3 kg (271 lb 12.8 oz), SpO2 98 %. Physical Exam Constitutional: He is oriented to person, place, and time and well-developed, well-nourished, and in no distress. Non-toxic appearance. He does not have a sickly appearance. No distress. HENT: Head: Normocephalic and atraumatic. Right Ear: Hearing, tympanic membrane, external ear and ear canal normal. Left Ear: Hearing, tympanic membrane, external ear and ear canal normal. Nose: Nose normal. Mouth/Throat: Uvula is midline and mucous membranes are normal. Posterior oropharyngeal erythema present. No oropharyngeal exudate, posterior oropharyngeal edema or tonsillar abscesses. Eyes: Conjunctivae and lids are normal. Pupils are equal, round, and reactive to light. Right eye exhibits no discharge. Left eye exhibits no discharge. No scleral icterus. Neck: Trachea normal and normal range of motion. Neck supple. Cardiovascular: Normal rate, regular rhythm and normal heart sounds. Pulmonary/Chest: Effort normal and breath sounds normal. Lymphadenopathy: He has no cervical adenopathy. Neurological: He is alert and oriented to person, place, and time. Skin: No rash noted. He is not diaphoretic. ASSESSMENT/PLAN: 1. Sore throat - ICD9: 462, ICD10: J02.9 (primary diagnosis) - suspect viral - Rapid Strep negative in the office today and Throat culture pending - Discussed supportive care treatment with fluids, rest and analgesia. - The patient should follow up in 3-5 days if symptoms persist or worsen - Call back if drooling, increased temperature, symptoms of dehydration and/or still sick in one week - RAPID STREP TEST B/O - GROUP A STREPTOCOCCUS BY PCR 2. Viral URI with cough - ICD9: 465.9, ICD10: J06.9, B97.89 - Discussed viral etiology and rationale for treatment. - Rapid strep negative in office today - Symptomatic treatment with prn analgesia - Supportive care with fluids and rest -will give steroid to cover for wheeze, patient report - Follow up in 3-5 days if symptoms persist or sooner if worsening of symptoms Prescription instructions reviewed with patient as applicable. Patient advised if symptoms do not improve or if symptoms worsen sooner, to contact the office for further evaluation by their primary care physician. Potential red flag symptoms discussed with the patient. Reviewed appropriate action plan to take if red flag symptoms occur. Patient agreeable to treatment plan. GILLES Weldon APRN.CNP 10/17/2017 11:19 AM Signed RESPIRATORY INFECTION GENERAL INFORMATION: An upper respiratory tract infection, or cold, is a viral infection of the airway passages. It can be caused by any one of almost 200 different viruses. Common symptoms include a runny or stuffy nose, sneezing, watery eyes, sore throat, cough, and slight fever. Colds are contagious, especially during the first 3 or 4 days and cannot be cured by antibiotics. They are spread by coughs, sneezes, and direct contact, especially [id number]. A respiratory tract infection usually clears up in a few days, but some people may be sick for a week or two. INSTRUCTIONS: 1. Be careful not to blow your nose too hard because this may cause a nosebleed. 2. Use a cool-mist humidifier (vaporizer) to increase air moisture. This will make it easier for you to breathe. Do not use hot steam. 3. Rest as much as possible and get plenty of sleep. 4. Wash your hands often, especially after you blow your nose. Cover your mouth and nose with a tissue when you sneeze or cough. 5. Drink plenty of clear fluids (8 glasses a day) such as water, fruit juice, tea, clear soups, and carbonated beverages. CONTACT YOUR DOCTOR IF : 1. Your fever lasts more than 3 days. 2. You have a sore throat that gets worse or you see white or yellow spots in your throat. 3. Your cough gets worse or lasts more than 10 days. 4. You develop a rash anywhere on your skin. 5. You have an earache or a headache. 6. You have thick greenish or yellowish discharge from your nose. RETURN IMMEDIATELY IF: 1. You cough up thick yellow, green, long, or bloody sputum. 2. You have difficulty breathing, pain in your chest, or your skin or nails look long or blue. 3. You have shaking chills or a temperature over 102 F (39 C). Referring Provider: SELF [200] Allergies As of Date: 10/17/2017 Noted Allergy Reaction BACTRIM (SULFAMETHOXAZOLE-TRIMETH*05/18/2012 4 - Hives Comments: Patient seen in ER at [facility] on 05/18/12 for hives while on Bactrim and phenazodine following surgery Date Reviewed: 10/17/2017 Reviewed by: Wilfred Ignacio - Fully Assessed Reason for Visit: Sore Throat [200] Cmt: with congestion AND cough x 2 days Primary Visit Diagnosis:Sore throat [J02.9] Other Visit Diagnosis:Viral URI with cough [J06.9, B97.89] Order(s):RAPID STREP TEST B/O [[id number]] Order #: [id number] GROUP A STREPTOCOCCUS BY PCR [SQGASPCR] Order #: [id number] predniSONE (DELTASONE) 20 mg tabletTake 2 tablets by mouth once daily for 5 days.Disp: 10 tabletRfl: 0 Prescriptions as of 10/17/2017 Sig: BENZONATATE 100 MG CAPSULE Take 2 capsules by mouth thre* ALBUTEROL SULFATE HFA 90 MCG/* Inhale 2 Puffs as instructed * IBUPROFEN 800 MG TABLET Take 800 mg by mouth every 6 * PREDNISONE 20 MG TABLET Take 2 tablets by mouth once * POLYETHYLENE GLYCOL 3350 17 G* Take 17 g by mouth once daily* Problem List As Of Date 10/17/2017 Noted Resolved CONGENITAL PES PLANUS [Q66.50] INVALID FOR* Tendonitis [M77.9] INVALID FOR* Hypospadias [Q54.9] INVALID FOR*12/26/2012 ADHD (attention deficit hyperactivity disorder)*INVALID FOR* Meatal stenosis [N35.9] INVALID FOR* OCD (obsessive compulsive disorder) [F42.9] INVALID FOR* Tourette's [F95.2] INVALID FOR* Smoker [F17.200] INVALID FOR* Vitreous floaters of both eyes [H43.393] INVALID FOR* Meibomian gland dysfunction (MGD), bilateral, b*INVALID FOR* Punctate keratitis, bilateral [H16.143] INVALID FOR* Other instructions from your clinician: RESPIRATORY INFECTION GENERAL INFORMATION: An upper respiratory tract infection, or cold, is a viral infection of the airway passages. It can be caused by any one of almost 200 different viruses. Common symptoms include a runny or stuffy nose, sneezing, watery eyes, sore throat, cough, and slight fever. Colds are contagious, especially during the first 3 or 4 days and cannot be cured by antibiotics. They are spread by coughs, sneezes, and direct contact, especially [id number]. A respiratory tract infection usually clears up in a few days, but some people may be sick for a week or two. INSTRUCTIONS: 1. Be careful not to blow your nose too hard because this may cause a nosebleed. 2. Use a cool-mist humidifier (vaporizer) to increase air moisture. This will make it easier for you to breathe. Do not use hot steam. 3. Rest as much as possible and get plenty of sleep. 4. Wash your hands often, especially after you blow your nose. Cover your mouth and nose with a tissue when you sneeze or cough. 5. Drink plenty of clear fluids (8 glasses a day) such as water, fruit juice, tea, clear soups, and carbonated beverages. CONTACT YOUR DOCTOR IF : 1. Your fever lasts more than 3 days. 2. You have a sore throat that gets worse or you see white or yellow spots in your throat. 3. Your cough gets worse or lasts more than 10 days. 4. You develop a rash anywhere on your skin. 5. You have an earache or a headache. 6. You have thick greenish or yellowish discharge from your nose. RETURN IMMEDIATELY IF: 1. You cough up thick yellow, green, long, or bloody sputum. 2. You have difficulty breathing, pain in your chest, or your skin or nails look long or blue. 3. You have shaking chills or a temperature over 102 F (39 C). Prescriptions ordered this encounter Disp Refills Start End PREDNISONE 20 MG TABLET 10 t* 0 10/17/2017 10/22/2017 Route: ORAL Sig: Take 2 tablets by mouth once daily for 5 days. Encounter Status:Closed by WILFRED IGNACIO CNP on 10/17/17 CNCO Observed: 09/12/2017 Status: COMPLETED Source: [place] 12:00 AM [facility] REPOSITORY Letter Text [address] [place] [address] [phone] 09/12/2017 Frederick Mead [facility] [address] [facility] [address] Dear Mr. Mead: Due to a change in the provider's schedule, it has been necessary to reschedule your appointment. Enclosed please find a new appointment reminder that will replace the one previously sent to you. If this appointment is not convenient for you, please contact our office at [phone]. Thank you for choosing the [facility] as your Healthcare Provider. Sincerely, Appointment Office Department of Family Medicine Enclosure PROGRESS Observed: 08/23/2017 Status: COMPLETED Source: [place] 6:27 PM [facility] REPOSITORY HNO ID: [id number] Author: Gracia Moran) Paco Service: (none) Author Type: Physician All Source Analyst Type: Progress Notes Filed: 08/23/2017 6:56 PM Note Text: Subjective HPI Pt presents with cough, congestion, sore throat and chest congestion x 1 week. He was seen here a week ago and hasn't improved. He is a smoker, 1/4 pack per day. No history of asthma. Review of Systems Constitutional: Negative for chills and fever. HENT: Positive for congestion and sore throat. Eyes: Negative. Respiratory: Positive for cough and wheezing. Cardiovascular: Negative. Skin: Negative. All other systems reviewed and are negative. PAST MEDICAL HISTORY Diagnosis Date - Attention deficit disorder with hyperactivity(314.01) - PMH - PAST MEDICAL HISTORY OF ocd - PMH - PAST MEDICAL HISTORY OF tourettes - Smoker 12/23/2015 Current Outpatient Prescriptions: ibuprofen (MOTRIN) 600 mg tablet Take 1 tablet by mouth every 8 hours as needed for Pain for up to 10 days. Disp: 30 tablet Rfl: 0 ibuprofen (MOTRIN) 800 mg tablet Take 800 mg by mouth every 6 hours as needed. Disp: Rfl: polyethylene glycol 3350 (MIRALAX, GLYCOLAX) 17 gram/dose powder Take 17 g by mouth once daily. This is one (1) capful. Put in at least 8oz of liquid each day. Disp: 1 Bottle Rfl: 11 No current facility-administered medications for this visit. PAST SURGICAL HISTORY Procedure Laterality Date - COLONOSCOP W/ OR W/O [facility] SPEC 01/27/2016 Colonoscopy - PAST SURGICAL HISTORY OF 2011 hypospadias FAMILY HISTORY Problem Relation Age of Onset - None Father - Arthritis Mother - depression [Other] [OTHER] Mother - fibromyalgia [Other] [OTHER] Mother - Diabetes Maternal Grandfather - Hypertension Maternal Grandmother - ADD [Other] [OTHER] Mother Social History Substance Use Topics - Smoking status: Current Every Day Smoker Packs/day: 1.00 Years: 1.00 - Smokeless tobacco: Never Used Comment: smokes 5 cigarettes a day as of 12/23/15 - Alcohol use 3.0 oz/week 2 Cans of Beer (12oz) per week BP 112/82 Pulse 92 Temp 36.6 ?C (97.8 ?F) (Tympanic) Resp 16 Wt 124.2 kg (273 lb 12.8 oz) SpO2 96% BMI 34.22 kg/m2 Objective Physical Exam Constitutional: He is oriented to person, place, and time and well-developed, well-nourished, and in no distress. HENT: Head: Normocephalic and atraumatic. Right Ear: External ear normal. Left Ear: External ear normal. Nose: Nose normal. Mouth/Throat: Oropharynx is clear and moist. Eyes: Conjunctivae are normal. Neck: Normal range of motion. Neck supple. Cardiovascular: Normal rate, regular rhythm and normal heart sounds. Pulmonary/Chest: Effort normal and breath sounds normal. Harsh cough noted Neurological: He is alert and oriented to person, place, and time. Skin: Skin is warm and dry. Psychiatric: Affect and judgment normal. Nursing note and vitals reviewed. ASSESSMENT/PLAN: 1. Acute bronchitis, unspecified organism - ICD9: 466.0, ICD10: J20.9 Pt symptoms consistent with bronchitis. He hasn't improved since his visit a week ago. I will write doxycycline, prednisone, an inhaler and tessalon. Discussed with patient concerning symptoms to go to the emergency department or follow up here. Pt agreeable with this plan. STEPHANIE Kinney Observed: 08/23/2017 Status: COMPLETED Source: [place] 6:15 PM [facility] REPOSITORY Office Visit (WSTR) NULL,FREDERICK Martinez ([id number]) 1995 M Date Time Provider Department 08/23/17 6:15 PM GRACIA ANTONIO) [facility] During your visit today, we recorded the following information about you: Temperature Pulse Respiration Blood pressure 97.8 degrees 92/minute 16/minute 112/82 Weight 124.2 kg Gracia Antonio PA-C 08/23/2017 6:56 PM Signed Subjective HPI Pt presents with cough, congestion, sore throat and chest congestion x 1 week. He was seen here a week ago and hasn't improved. He is a smoker, 1/4 pack per day. No history of asthma. Review of Systems Constitutional: Negative for chills and fever. HENT: Positive for congestion and sore throat. Eyes: Negative. Respiratory: Positive for cough and wheezing. Cardiovascular: Negative. Skin: Negative. All other systems reviewed and are negative. PAST MEDICAL HISTORY Diagnosis Date - Attention deficit disorder with hyperactivity(314.01) - PMH - PAST MEDICAL HISTORY OF ocd - PMH - PAST MEDICAL HISTORY OF tourettes - Smoker 12/23/2015 Current Outpatient Prescriptions: ibuprofen (MOTRIN) 600 mg tablet Take 1 tablet by mouth every 8 hours as needed for Pain for up to 10 days. Disp: 30 tablet Rfl: 0 ibuprofen (MOTRIN) 800 mg tablet Take 800 mg by mouth every 6 hours as needed. Disp: Rfl: polyethylene glycol 3350 (MIRALAX, GLYCOLAX) 17 gram/dose powder Take 17 g by mouth once daily. This is one (1) capful. Put in at least 8oz of liquid each day. Disp: 1 Bottle Rfl: 11 No current facility-administered medications for this visit. PAST SURGICAL HISTORY Procedure Laterality Date - COLONOSCOP W/ OR W/O [facility] SPEC 01/27/2016 Colonoscopy - PAST SURGICAL HISTORY OF 2011 hypospadias FAMILY HISTORY Problem Relation Age of Onset - None Father - Arthritis Mother - depression [Other] [OTHER] Mother - fibromyalgia [Other] [OTHER] Mother - Diabetes Maternal Grandfather - Hypertension Maternal Grandmother - ADD [Other] [OTHER] Mother Social History Substance Use Topics - Smoking status: Current Every Day Smoker Packs/day: 1.00 Years: 1.00 - Smokeless tobacco: Never Used Comment: smokes 5 cigarettes a day as of 12/23/15 - Alcohol use 3.0 oz/week 2 Cans of Beer (12oz) per week BP 112/82 Pulse 92 Temp 36.6 ?C (97.8 ?F) (Tympanic) Resp 16 Wt 124.2 kg (273 lb 12.8 oz) SpO2 96% BMI 34.22 kg/m2 Objective Physical Exam Constitutional: He is oriented to person, place, and time and well-developed, well-nourished, and in no distress. HENT: Head: Normocephalic and atraumatic. Right Ear: External ear normal. Left Ear: External ear normal. Nose: Nose normal. Mouth/Throat: Oropharynx is clear and moist. Eyes: Conjunctivae are normal. Neck: Normal range of motion. Neck supple. Cardiovascular: Normal rate, regular rhythm and normal heart sounds. Pulmonary/Chest: Effort normal and breath sounds normal. Harsh cough noted Neurological: He is alert and oriented to person, place, and time. Skin: Skin is warm and dry. Psychiatric: Affect and judgment normal. Nursing note and vitals reviewed. ASSESSMENT/PLAN: 1. Acute bronchitis, unspecified organism - ICD9: 466.0, ICD10: J20.9 Pt symptoms consistent with bronchitis. He hasn't improved since his visit a week ago. I will write doxycycline, prednisone, an inhaler and tessalon. Discussed with patient concerning symptoms to go to the emergency department or follow up here. Pt agreeable with this plan. Gracia Antonio PA-C Referring Provider: SELF [200] Allergies As of Date: 08/23/2017 Noted Allergy Reaction BACTRIM (SULFAMETHOXAZOLE-TRIMETH*05/18/2012 4 - Hives Comments: Patient seen in ER at [facility] on 05/18/12 for hives while on Bactrim and phenazodine following surgery Date Reviewed: 08/23/2017 Reviewed by: Macie Gallo LPN - Fully Assessed Reason for Visit: cough, ESTEVEZ, ST, chest congestion and wheezing [Other] Cmt: x 1-2 days Primary Visit Diagnosis:Acute bronchitis, unspecified organism [J20.9] Order(s):doxycycline (VIBRA-TABS) 100 mg tabletTake 1 tablet by mouth twice daily for 10 days.Disp: 20 tabletRfl: 0 predniSONE (DELTASONE) 20 mg tabletTake 1 tablet by mouth twice daily for 5 days.Disp: 10 tabletRfl: 0 benzonatate (TESSALON PERLE) 100 mg capsuleTake 2 capsules by mouth three times daily as needed.Disp: 30 capsuleRfl: 0 albuterol HFA (VENTOLIN HFA) 90 mcg/actuation inhalerInhale 2 Puffs as instructed every 4 hours as needed for Wheezing/Shortness of Breath.Disp: 1 InhalerRfl: 0 Prescriptions as of 08/23/2017 Sig: IBUPROFEN 600 MG TABLET Take 1 tablet by mouth every * IBUPROFEN 800 MG TABLET Take 800 mg by mouth every 6 * DOXYCYCLINE HYCLATE 100 MG TA* Take 1 tablet by mouth twice * PREDNISONE 20 MG TABLET Take 1 tablet by mouth twice * BENZONATATE 100 MG CAPSULE Take 2 capsules by mouth thre* ALBUTEROL SULFATE HFA 90 MCG/* Inhale 2 Puffs as instructed * POLYETHYLENE GLYCOL 3350 17 G* Take 17 g by mouth once daily* Problem List As Of Date 08/23/2017 Noted Resolved CONGENITAL PES PLANUS [Q66.50] INVALID FOR* Tendonitis [M77.9] INVALID FOR* Hypospadias [Q54.9] INVALID FOR*12/26/2012 ADHD (attention deficit hyperactivity disorder)*INVALID FOR* Meatal stenosis [N35.9] INVALID FOR* OCD (obsessive compulsive disorder) [F42.9] INVALID FOR* Tourette's [F95.2] INVALID FOR* Smoker [F17.200] INVALID FOR* Vitreous floaters of both eyes [H43.393] INVALID FOR* Meibomian gland dysfunction (MGD), bilateral, b*INVALID FOR* Punctate keratitis, bilateral [H16.143] INVALID FOR* Prescriptions ordered this encounter Disp Refills Start End DOXYCYCLINE HYCLATE 100 MG TABLET 20 t* 0 08/23/2017 09/02/2017 Route: ORAL Sig: Take 1 tablet by mouth twice daily for 10 days. PREDNISONE 20 MG TABLET 10 t* 0 08/23/2017 08/28/2017 Route: ORAL Sig: Take 1 tablet by mouth twice daily for 5 days. BENZONATATE 100 MG CAPSULE 30 c* 0 08/23/2017 Route: ORAL Sig: Take 2 capsules by mouth three times daily as needed. ALBUTEROL SULFATE HFA 90 MCG/ACTUATI* 1 In* 0 08/23/2017 Route: INHALATION Sig: Inhale 2 Puffs as instructed every 4 hours as needed for Wheezing/Shortness of Breath. Letter Text [place] [facility] Care FRANK Fulton [address], [place] [id number] 08/23/2017 TO WHOM IT MAY CONCERN: This is to confirm that Frederick Mead had an appointment and was seen at the [facility] in the Department of Urgent Care by FRANK Fulton on 08/23/2017 and may return to work on 08/24/2017. Sincerely yours, FRANK Fulton Encounter Status:Closed by GRACIA ANTONIO PA-C on 08/23/17 PROGRESS Observed: 08/16/2017 Status: COMPLETED Source: [place] 10:39 AM [facility] REPOSITORY HNO ID: [id number] Author: Torres Kramer Service: (none) Author Type: Nurse Practitioner Type: Progress Notes Filed: 08/16/2017 10:53 AM Note Text: SUBJECTIVE: Frederick Mead is a 21 year old male. Who presents today with cough, vomiting. He states that he is coughing so hard that he is vomiting. This happened 3 times today. He feels lightheaded and congested. This has been going on for 5 days. He states at the correction everyone has been sick. He is eating and drinking with out any difficulty. No fever, no abd pain cp He lives in a Homeless correction but is doing well there HPI PAST MEDICAL HISTORY Diagnosis Date - Attention deficit disorder with hyperactivity(314.01) - PMH - PAST MEDICAL HISTORY OF ocd - PMH - PAST MEDICAL HISTORY OF tourettes - Smoker 12/23/2015 FAMILY HISTORY Problem Relation Age of Onset - None Father - Arthritis Mother - depression [Other] [OTHER] Mother - fibromyalgia [Other] [OTHER] Mother - Diabetes Maternal Grandfather - Hypertension Maternal Grandmother - ADD [Other] [OTHER] Mother Social History Substance Use Topics - Smoking status: Current Every Day Smoker Packs/day: 1.00 Years: 1.00 - Smokeless tobacco: Never Used Comment: smokes 5 cigarettes a day as of 12/23/15 - Alcohol use 3.0 oz/week 2 Cans of Beer (12oz) per week ALLERGIES Allergen Reactions - Bactrim [Sulfametho* Hives Patient seen in ER at [facility] on 05/18/12 for hives while on Bactrim and phenazodine following surgery Current Outpatient Prescriptions: ibuprofen (MOTRIN) 800 mg tablet Take 800 mg by mouth every 6 hours as needed. Disp: Rfl: polyethylene glycol 3350 (MIRALAX, GLYCOLAX) 17 gram/dose powder Take 17 g by mouth once daily. This is one (1) capful. Put in at least 8oz of liquid each day. Disp: 1 Bottle Rfl: 11 No current facility-administered medications for this visit. OBJECTIVE: BP 118/78 Pulse 102 Temp 36.3 ?C (97.4 ?F) (Tympanic) Resp 16 Wt 124.3 kg (274 lb) SpO2 97% BMI 34.25 kg/m2 ROS all other systems reviewed and are negative Physical Exam Constitutional: Well developed, well nourished, NAD, alert and oriented to person , place and time, in no apparent distress. ENT: Head is atraumatic, airway patent, mucosal membranes moist. + nasal congestion Tonsiles +1 pink no exudate uvula midline Eyes: EOMI, PERRL, no drainage, vision unchanged Neck: supple with no palpable lymph nodes, no midline tenderness Cardiac: Normal rate and rhythm. Heart sounds S1, S2. No murmurs, rubs or gallops. Chest: nontender Respiratory: No retractions or use of accessory muscles. Breath sounds clear and equal bilaterally. GI: Abdomen soft and non-distended, without tenderness, rebound or guarding. Bowel sounds normal. : no CVA tenderness MS: no swelling tenderness or deformity in upper or lower extremities, no midline tenderness in thoracic or lumbar spine. Neuro: strength sensation and coordination intact. CN II-XII grossly intact, Skin: warm and dry with out rash, lesion or ecchymosis Psych: alert appropriate, speech clear It was a pleasure to take care of Frederick Mead today. He has a viral illness. I will give him a script for motrin. He will continue to push fluids rest and wash his hands frequently. Patient will follow up with family physician. They may return to the Urgent Care or go to the ER for worsening symptoms or concerns. Patient verbalized understanding of plan of care and is in agreement. ASSESSMENT/PLAN: 1. Viral illness - ICD9: 079.99, ICD10: B34.9 - IBUPROFEN 600 MG TABLET Torres Kramer APRN.CNP CNOV Observed: 08/16/2017 Status: COMPLETED Source: [place] 10:30 AM [facility] REPOSITORY Office Visit (WSTR) FREDERICK MEAD ([id number]) 1995 M Date Time Provider Department 08/16/17 10:30 AM TORRES KRAMER (TARUN) [facility] During your visit today, we recorded the following information about you: Temperature Pulse Respiration Blood pressure 97.4 degrees 102/minute 16/minute 118/78 Weight 124.3 kg Torres Kramer APRN.CNP 08/16/2017 10:53 AM Signed SUBJECTIVE: Frederick Mead is a 21 year old male. Who presents today with cough, vomiting. He states that he is coughing so hard that he is vomiting. This happened 3 times today. He feels lightheaded and congested. This has been going on for 5 days. He states at the correction everyone has been sick. He is eating and drinking with out any difficulty. No fever, no abd pain cp He lives in a Homeless correction but is doing well there HPI PAST MEDICAL HISTORY Diagnosis Date - Attention deficit disorder with hyperactivity(314.01) - PMH - PAST MEDICAL HISTORY OF ocd - PMH - PAST MEDICAL HISTORY OF tourettes - Smoker 12/23/2015 FAMILY HISTORY Problem Relation Age of Onset - None Father - Arthritis Mother - depression [Other] [OTHER] Mother - fibromyalgia [Other] [OTHER] Mother - Diabetes Maternal Grandfather - Hypertension Maternal Grandmother - ADD [Other] [OTHER] Mother Social History Substance Use Topics - Smoking status: Current Every Day Smoker Packs/day: 1.00 Years: 1.00 - Smokeless tobacco: Never Used Comment: smokes 5 cigarettes a day as of 12/23/15 - Alcohol use 3.0 oz/week 2 Cans of Beer (12oz) per week ALLERGIES Allergen Reactions - Bactrim [Sulfametho* Hives Patient seen in ER at [facility] on 05/18/12 for hives while on Bactrim and phenazodine following surgery Current Outpatient Prescriptions: ibuprofen (MOTRIN) 800 mg tablet Take 800 mg by mouth every 6 hours as needed. Disp: Rfl: polyethylene glycol 3350 (MIRALAX, GLYCOLAX) 17 gram/dose powder Take 17 g by mouth once daily. This is one (1) capful. Put in at least 8oz of liquid each day. Disp: 1 Bottle Rfl: 11 No current facility-administered medications for this visit. OBJECTIVE: BP 118/78 Pulse 102 Temp 36.3 ?C (97.4 ?F) (Tympanic) Resp 16 Wt 124.3 kg (274 lb) SpO2 97% BMI 34.25 kg/m2 ROS all other systems reviewed and are negative Physical Exam Constitutional: Well developed, well nourished, NAD, alert and oriented to person , place and time, in no apparent distress. ENT: Head is atraumatic, airway patent, mucosal membranes moist. + nasal congestion Tonsiles +1 pink no exudate uvula midline Eyes: EOMI, PERRL, no drainage, vision unchanged Neck: supple with no palpable lymph nodes, no midline tenderness Cardiac: Normal rate and rhythm. Heart sounds S1, S2. No murmurs, rubs or gallops. Chest: nontender Respiratory: No retractions or use of accessory muscles. Breath sounds clear and equal bilaterally. GI: Abdomen soft and non-distended, without tenderness, rebound or guarding. Bowel sounds normal. : no CVA tenderness MS: no swelling tenderness or deformity in upper or lower extremities, no midline tenderness in thoracic or lumbar spine. Neuro: strength sensation and coordination intact. CN II-XII grossly intact, Skin: warm and dry with out rash, lesion or ecchymosis Psych: alert appropriate, speech clear It was a pleasure to take care of Frederick Mead today. He has a viral illness. I will give him a script for motrin. He will continue to push fluids rest and wash his hands frequently. Patient will follow up with family physician. They may return to the Urgent Care or go to the ER for worsening symptoms or concerns. Patient verbalized understanding of plan of care and is in agreement. ASSESSMENT/PLAN: 1. Viral illness - ICD9: 079.99, ICD10: B34.9 - IBUPROFEN 600 MG TABLET Torres Kramer APRN.TARUN Referring Provider: SELF [200] Allergies As of Date: 08/16/2017 Noted Allergy Reaction BACTRIM (SULFAMETHOXAZOLE-TRIMETH*05/18/2012 4 - Hives Comments: Patient seen in ER at [facility] on 05/18/12 for hives while on Bactrim and phenazodine following surgery Date Reviewed: 08/16/2017 Reviewed by: Macie Gallo LPN - Fully Assessed Reason for Visit: chest congestion, cough, weak, vomiting and lightheadedness [Other] Cmt: x 5 days Primary Visit Diagnosis:Viral illness [B34.9] Order(s):ibuprofen (MOTRIN) 600 mg tabletTake 1 tablet by mouth every 8 hours as needed for Pain for up to 10 days.Disp: 30 tabletRfl: 0 Prescriptions as of 08/16/2017 Sig: IBUPROFEN 800 MG TABLET Take 800 mg by mouth every 6 * IBUPROFEN 600 MG TABLET Take 1 tablet by mouth every * POLYETHYLENE GLYCOL 3350 17 G* Take 17 g by mouth once daily* Problem List As Of Date 08/16/2017 Noted Resolved CONGENITAL PES PLANUS [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] INVALID FOR* Tendonitis [M77.9] INVALID FOR* Hypospadias [Q54.9] INVALID FOR*12/26/2012 ADHD (attention deficit hyperactivity disorder)*INVALID FOR* Meatal stenosis [N35.9] INVALID FOR* OCD (obsessive compulsive disorder) [F42.9] INVALID FOR* Tourette's [F95.2] INVALID FOR* Smoker [F17.200] INVALID FOR* Vitreous floaters of both eyes [H43.393] INVALID FOR* Meibomian gland dysfunction (MGD), bilateral, b*INVALID FOR* Punctate keratitis, bilateral [H16.143] INVALID FOR* Prescriptions ordered this encounter Disp Refills Start End IBUPROFEN 600 MG TABLET 30 t* 0 08/16/2017 08/26/2017 Route: ORAL Sig: Take 1 tablet by mouth every 8 hours as needed for Pain for up to 10 days. Encounter Status:Closed by TORRES KRAMER CNP on 08/16/17 ALLERGIES ALLERGIES DATE TYPE / CODE NAME / CODE REACTION SEVERITY SOURCE 05/10/2018 Drug No Known Unknown [facility] Allergy/4160 Allergies/F00 [facility] [address]60(SNOMED [id number](RXNOR Repository CT) M) 05/18/2012 DRUG/[id number] SULFAMETHOXAZ HIVES [facility] 03(SNOMED OLE-TRIMETHOP [place] CT) RIM Repository ENCOUNTERS ENCOUNTERS ADMIT/DISCHARGE ACCOUNT ADMITTING ENCOUNTER LOCATION SOURCE NUMBER CLASS 05/10/2018/05/10/20 [id number] Ambulatory BMSBuilding:B Fanshawe 18 MS.NOW [facility] Repository 05/02/2018/05/02/20 [id number] Ambulatory BMSBuilding:B Tatianna 18 MS.NOW [facility] Repository 05/02/2018/05/02/20 [id number] Emergency [address] ing:ED Repository 12/09/2017/12/10/19 [id number] Emergency [address] ing:ED Repository 11/01/2017/11/03/19 [id number] Ambulatory [address] Repository 10/25/2017/10/27/19 [id number] Emergency [address] ing:ED Repository 10/17/2017/10/19/19 [id number] Ambulatory [address] Repository 08/23/2017/08/25/19 [id number] Ambulatory [address] Repository 08/16/2017/08/18/19 [id number] Ambulatory [address] Repository PAYERS PAYERS ENCOUNTER GUARANTOR PAYER SUBSCRIBER SOURCE 05/10/2018 FREDERICK A Primary FREDERICK Campuzano [id number] 1/2 S Insurance:SELF INS NULLDOB: [facility] [id number] Number: Repository [id number]: [phone] [phone] () Date:7881-01-27CRHGQK ATED COMPENSATION [id number] [address] [place] [id number]: 05/10/2018 Secondary NOT GIVENUNK [place] Insurance:SELF PAY [facility] Number: Effective Repository Date:2018-05-10 05/02/2018 FREDERICK A Primary FREDERICK Campuzano [id number] 1/2 S Insurance:SELF INS NULLDOB: [facility] [id number] Number: Repository [id number]: [phone] [phone] () Date:[id number] ATED COMPENSATION [id number] [place] [address]TX: 05/02/2018 Secondary NOT GIVENUNK [place] Insurance:SELF PAY [facility] Number: Effective Repository Date:2018-05-02 05/02/2018 RFEDERICK A Primary FREDERICK Campuzano [id number] 1/ S Insurance:SELF INS NULLDOB: [facility] [id number] Number: Repository [id number]: [phone] [phone] () Date:1647-14-67YDXWRM ATED COMPENSATION [id number] [place], [place] [address]CE: 05/02/2018 Secondary NOT GIVENUNK [place] Insurance:SELF PAY [facility] Number: Effective Repository Date:2018-05-02 12/09/2017 FREDERICK A Primary FREDERICK Olsonoster [id number] [address] Insurance:CARESOURCEP NULLDOB: [facility] Number: [id number] [id number] Repository [address]Pyw: ([phone]) Date:2017-12-09P O [phone] () [address]ATTN: [place] [address]TZ: 12/09/2017 Secondary NOT GIVENUNK [place] Insurance:SELF PAY [facility] Number: Effective Repository Date:2017-12-09 10/25/2017 FREDERICK A Primary FREDERICK Campuzano [id number] Insurance:CARESOURCEP NULLDOB: [facility] Number: [id number] Hospital [address]Eoa: [phone] [id number] Repository [phone] () Date:2017-10-25[address]ATTN: [place] [address]SC: 10/25/2017 Secondary NOT GIVENUNK [place] Insurance:SELF PAY [facility] Effective Repository Date:2017-10-25
== END 2018-05-02 02:38 | disposition home or self-care (01) ==
PROVIDERS: Emergency Provider Emergency Medicine
DX: S39.012A Strain of muscle, fascia and tendon of lower back, initial encounter (principal); X50.9XXA Other and unspecified overexertion or strenuous movements or postures, initial encounter; Y93.9 Activity, unspecified; Y92.89 Other specified places as the place of occurrence of the external cause; Y99.0 Civilian activity done for income or pay; M79.672 Pain in left foot; G89.29 Other chronic pain; Z72.0 Tobacco use
CPT/HCPCS: 72100; 73630; 99284

== ENCOUNTER → 2019-03-12 11:43 | Outpatient (CLI) | payer MEDICAID, SELFPAY ==
[2019-03-12 11:24] VITALS: BMI 35.8
--- NOTE | 2019-03-12 11:43 | RAD_ITS ---
STUDY: X-RAY - RIGHT FOOT CLINICAL: Pain, no specific injury. TECHNIQUE: 3 view(s) of the foot. COMPARISON: None. FINDINGS: Normal talus, calcaneus, and tarsal bones. Normal visualized subtalar, talonavicular, calcaneocuboid, tarsal and tarsometatarsal articulations. Normal metatarsi. Normal metatarsophalangeal joint of the great toe. Normal tibial and fibular sesamoid bones. Normal interphalangeal joint of the great toe. Normal phalanges of the great toe. Normal second through fifth metatarsophalangeal joints. Normal interphalangeal joints and phalanges of the lesser toes. The soft tissue structures are unremarkable. RAD/Foot min 3 Views IMPRESSION: Normal x-ray examination of the right foot. Electronically Signed: Prince Sellers MD at 12:24 EDT Tel , Service support ,
--- NOTE | 2019-03-12 11:43 | RAD_ITS ---
STUDY: X-RAY - LEFT FOOT CLINICAL: Pain, no trauma. TECHNIQUE: 3 view(s) of the foot. COMPARISON: Radiographs 05/02/2018. FINDINGS: Normal talus, calcaneus, and tarsal bones. Normal visualized subtalar, talonavicular, calcaneocuboid, tarsal and tarsometatarsal articulations. Normal metatarsi. Normal metatarsophalangeal joint of the great toe. Normal tibial and fibular sesamoid bones. Normal interphalangeal joint of the great toe. Normal phalanges of the great toe. Normal second through fifth metatarsophalangeal joints. Normal interphalangeal joints and phalanges of the lesser toes. The soft tissue structures are unremarkable. RAD/Foot min 3 Views IMPRESSION: Normal x-ray examination of the left foot. Electronically Signed: Prince Sellers MD at 12:15 EDT Tel , Service support ,
== END ==
PROVIDERS: Referring Provider Physician Assistant Surgical; Visit Provider Physician Assistant Surgical
DX: M79.671 Pain in right foot (principal); M79.672 Pain in left foot
CPT/HCPCS: 73630

== ENCOUNTER 2019-03-12 19:52 | Emergency (ER) | payer MEDICAID, SELFPAY ==
[2019-03-12 11:24] VITALS: BMI 35.8
[2019-03-12 19:53] VITALS: BP 154/82; PULSE 92; RESP 18; TEMP 36.8; O2SAT 99; BMI 40.7
--- NOTE | 2019-03-12 20:58 | ED.VISSUMM ---
- ER Visit Summary Date of Service: 03/12/19 Chief Complaint: Blood in toilet History of Present Illness: The patient is a 23 M presenting with bright red blood per rectum. Patient states that he had a bowel movement today. He noted blood in the toilet. He has had similar symptoms in the past. He is not currently on any medications or anticoagulants. He denies abdominal pain. No nausea, vomiting, diarrhea. No lightheadedness or syncope. No fever. No other complaints. Physical Examination: Vitals are stable. Patient is afebrile. Alert no acute distress. HEENT exam is unremarkable. Neck is supple. Lungs are clear and equal bilaterally. Heart is regular rate and rhythm. Abdomen is soft nontender nondistended. No rebound or guarding Rectal: No external hemorrhoids, no gross blood Extremities are unremarkable. Skin is warm and dry. Remainder of exam is unremarkable. Emergency Department Course and Treatment: CBC normal with hemoglobin 13.7. Chemistries unremarkable. Stool is positive for occult blood. He remained hemodynamically stable in the ED. He is advised to follow-up with PCP and GI. Advised return to ED if worsening complaints. Disposition: Discharge home Impression: Rectal bleeding This note was generated with [employer] dictation software. It may contain incorrect words, spelling, and punctuation that were not noted in review of the chart prior to signing ED Disposition - Plan for ED Patient: Instructions: RECTAL BLEED, Stable Referrals: Billy Harkins DO [NON CLINICAL AFFILIATE] - Javon Sparks MD [NON-STAFF] - Care Physician,No Primary [Primary Care Provider] -
[2019-03-12 21:49] LABS: Absolute Lymphocyte Count 2.09 X10^3/uL (0.83-4.51); Absolute Neutrophil Count 3.2 X10^3/uL (2.0-7.7); Basophil# 0.05 X10^3/uL; Basophil% 0.8 % (0-1); Eosinophil# 0.18 X10^3/uL; Eosinophils% 2.9 % (0-5); Hematocrit 40.7 % (40-54); Hemoglobin 13.7 g/dL (13.0-16.5); Lymphocyte # 2.09 X10^3/ul (4.0); Lymphocyte % 34.2 % (19-41); Mean Corp Hgb Conc 33.7 g/dL (32-36); Mean Corpuscular Hgb 31.5 pg (27.0-32.0); Mean Corpuscular Volume 93.6 fL (80-94); Mean Platelet Vol. 9.8 fl (6.2-12.0); Monocyte# 0.57 X10^3/uL; Monocyte% 9.3 % (0-10); NRBC Flagged by Analyzer 0 % (0-5); Neutrophil # 3.21 X10^3/uL (2.7-7.7); Neutrophil % 52.5 % (47-70); Platelet Count 200 K/mm3 (150-450); RBC Distribution Width CV 12.2 % (11.6-14.6); Red Blood Count 4.35 M/mm3 (4.6-6.2); White Blood Count 6.1 K/mm3 (4.4-11.0)
[2019-03-12 22:04] LABS: Anion Gap 6 (5-15); BUN 19 mg/dL (7-18); BUN/Creat Ratio 22.8 RATIO (10-20); Calcium,Total 8.6 mg/dL (8.5-10.1); Chloride 108 mmol/L (98-107); Creatinine, Serum 0.83 mg/dL (0.70-1.30); EST Glomerular Filtration Rate 120 mL/min (>60); Est Glom Filt Rate - Afr Amer 145 mL/min (>60); Estimated Creatinine Clearance 168.49 ml/min; Glucose 119 mg/dL (74-106); Potassium 4.2 mmol/L (3.5-5.1); Sodium Level 139 mmol/L (136-145)
--- NOTE | 2019-03-12 22:39 | ED.DEP ---
ED Disposition - Plan for ED Patient: Instructions: RECTAL BLEED, Stable Referrals: Care Physician,No Primary [Primary Care Provider] - Billy Harkins DO [NON CLINICAL AFFILIATE] - Javon Sparks MD [NON-STAFF] -
[2019-03-12 23:19] VITALS: BP 148/78; PULSE 86; RESP 18; O2SAT 100
== END 2019-03-12 23:19 | disposition home or self-care (01) ==
LOC: ED 20:50
PROVIDERS: Emergency Provider Emergency Medicine
DX: K62.5 Hemorrhage of anus and rectum (principal); Z87.891 Personal history of nicotine dependence; M79.671 Pain in right foot; M79.672 Pain in left foot
CPT/HCPCS: 36415; 73630; 80048; 82274; 85025; 99282

== ENCOUNTER 2019-05-25 15:31 | Emergency (ER) | payer MEDICAID, SELFPAY ==
[2019-05-25 15:31] VITALS: BP 131/87; PULSE 95; RESP 15; TEMP 36.9; O2SAT 96; BMI 41.5
[2019-05-25 15:42] VITALS: RESP 16
--- NOTE | 2019-05-25 15:44 | ED.DCSUM_ITS ---
- ER Visit Summary Date of Service: 05/25/19 Chief Complaint: Back pain History of Present Illness: The patient is a 23 M who presents with back pain. States it started yesterday. He was helping his dad move some furniture and was bending over a lot and this worsened some lower back pain. Is worse with m ovement. He tried aspirin yesterday without any relief. No fevers. No bowel or bladder incontinence. Denies any falls or trauma. He states his back has hurt him in the past. Physical Examination: Vital signs reviewed. HEENT exam unremarkable. Heart is regular rate and rhythm without murmurs. Lungs are clear to auscultation. Abdomen is soft and nontender. Back is mildly tender in the diffuse lumbar region. Extremities reveal no edema. Skin exam normal. Neurologic exam normal. Test Results: None performed Emergency Department Course and Treatment: This is likely a lumbar strain. I do not feel he needs any imaging studies as his exam is fairly normal. I will treat him with naproxen and Flexeril. He will call his doctor tomorrow for follow-up Treatment Plan: [] Disposition: Discharge Impression: Lumbar strain This note was generated with [employer] dictation software. It may contain incorrect words, spelling, and punctuation that were not noted in review of the chart prior to signing ED Disposition - Plan for ED Patient: Referrals: Care Physician,No Primary [Primary Care Provider] -
--- NOTE | 2019-05-25 15:45 | DCINST.ED_ITS ---
ED Disposition - Plan for ED Patient: Disposition: Home or Assisted Living Instructions: BACK PAIN (Acute or Chronic) Prescriptions: cycloBENZAPRine HCl [Flexeril] 10 mg PO TID PRN #20 tab PRN Reason: Muscle Spasm Transmission Status: Pending to [facility]/pharmacy #[id number] Naproxen [Naprosyn] 500 mg PO BID PRN #20 tab Transmission Status: Pending to [facility]/pharmacy #[id number] Referrals: Care Physician,No Primary [Primary Care Provider] - Additional Instructions: Your prescriptions were electronically transmitted to [facility]
[2019-05-25] MEDS: Naproxen 500 MG Tablet PO (15:56)
[2019-05-25] MEDS: cycloBENZAPRine HCl 10 MG Tablet PO (15:56)
[2019-05-25 15:58] VITALS: RESP 18
== END 2019-05-25 16:00 | disposition home or self-care (01) ==
LOC: ED 15:53
PROVIDERS: Emergency Provider Emergency Medicine
DX: S39.012A Strain of muscle, fascia and tendon of lower back, initial encounter (principal); X50.3XXA Overexertion from repetitive movements, initial encounter; Y93.89 Activity, other specified; Z72.0 Tobacco use
CPT/HCPCS: 99283

== ENCOUNTER 2019-12-13 20:10 | Emergency (ER) | payer MEDICAID, SELFPAY ==
[2019-07-05 13:31] VITALS: BMI 41.5
[2019-12-13 20:10] VITALS: BP 142/90; PULSE 102; RESP 15; TEMP 36.9; O2SAT 95; BMI 43.3
--- NOTE | 2019-12-13 20:46 | ED.VIS.GEN ---
History of Present Illness Chief Complaint: Rash Informant: Patient Onset: Today Context: Sudden Onset Timing: Continuous Narrative: Patient is evaluated for a rash on his face. He noticed it after eating dinner tonight. He had tacos that were made at home. His mother used a new topical mix was wondering if he could be having an allergic reaction to that. He comments that he did have a rough day because he accidentally drank rancid milk from the food pantry and then had a significant episode of vomiting. He states he felt his eyes were bleeding out of his face he was vomiting so hard. Patient is not sure if the rash is associated with his episode of vomiting either. Patient denies any current GI discomfort. He denies any difficulty breathing, swelling of his mouth or lips or difficulty swallowing. He denies any history of any food allergies. He denies any other complaints at this time. Past Medical History - Allergies and Home Meds Allergies/Adverse Reactions: Allergies No Known Allergies Allergy (Verified 12/13/19 20:14) Primary Care Physician: DUKE TORRES [Other] Past Medical History: None Surgical History: noncontributory Lives: With Family Smoking Status: Current every day smoker Review of Systems General: Denies: Chills, Fever, Sweats Eyes: Denies: Visual changes - bilaterally, Diplopia ENT: Denies: Rhinorrhea, Sore throat Cardiovascular: Denies: Chest pain, Palpitations Respiratory: Denies: Dyspnea, Cough, Dyspnea on exertion Gastrointestinal: Reports: Vomiting - x 1. Denies: Abdominal pain, Nausea, Diarrhea, Melena, Hematochezia Genitourinary: Denies: Dysuria, Hematuria, Frequency Musculoskeletal: Denies: Back pain, Extremity Pain Skin: Reports: Rash - Face. Denies: Wounds Neurological: Denies: Headache, Weakness, Numbness Physical Exam Vital Signs/Narrative: Vital Signs Temp Pulse Resp BP Pulse Ox 12/13/19 20:10 98.4 F 102 H 15 142/90 H 95 Inital Vital Signs reviewed: Yes General: Well nourished, Well developed, No Acute Distress Head: Normocephalic, Atraumatic Eyes: Perrl, EOMI, - - No conjunctival hemorrhage noted ENT: Moist mucous membranes, No rhinorrhea, TM's clear, - - No edema of the lips or oropharynx. No signs of uvulitis Neck: Supple, Nontender, No JVD Cardiovascular: Regular rate, Regular rhythm, No murmurs Respiratory: No distress, CTA bilaterally, Chest nontender. Negative for: Rhonchi, Wheezing Abdomen: Soft, Nontender, Nondistended, Normal bowel sounds Back: Nontender, Normal Inspection Extremities: Nontender, No edema Skin: Normal color, - - Petechial rash around the eyes and in the Mallar distribution on the face Neurological: Alert, Oriented x3, Cranial nerves II-XII grossly intact, Normal Strength, Normal Sensation Psychological: Normal affect, Normal Mood Diagnostic/Tx/Re-eval - Medical Decision Making Patient is evaluated for rash on his face. He is worried he might be having an allergic reaction. Is not have any physical exam findings consistent with an allergic reaction. Patient does have petechial hemorrhages on his face consistent with his episode of forceful vomiting earlier today. He does not have any associated chest pain or difficulty breathing I do not think he needs a chest x-ray to rule out Boerhaave's. Patient does not have any other petechia or other signs of abnormal bleeding. I do not think blood work is indicated. He instructed to follow-up with his primary care doctor as needed. He is given return precautions. ED Disposition - Plan for ED Patient: Disposition: Home or Assisted Living Diagnosis: Petechial rash Referrals: DUKE TORRES [Other] Additional Instructions: I suspect the rash on your face is from ruptured blood vessels called petechia. This is likely result of your forceful vomiting earlier today. Please return the emergency room if you have any worsening symptoms. At this time I do not think you are having an allergic reaction. I think you are safe to go home.
== END 2019-12-13 21:03 | disposition home or self-care (01) ==
PROVIDERS: Emergency Provider Emergency Medicine
DX: R23.3 Spontaneous ecchymoses (principal); F17.200 Nicotine dependence, unspecified, uncomplicated
CPT/HCPCS: 99282

== ENCOUNTER 2020-03-02 15:27 | Emergency (ER) | payer MEDICAID, SELFPAY ==
[2020-02-24 10:25] VITALS: BMI 43.3
[2020-03-02 15:28] VITALS: BP 160/102; PULSE 89; RESP 18; TEMP 36.3; O2SAT 97; BMI 43.7
[2020-03-02 15:30] VITALS: BP 160/102; PULSE 93; RESP 18; TEMP 36.3; O2SAT 97
--- NOTE | 2020-03-02 15:45 | EKG12_ITS ---
Test Reason : Blood Pressure : / mmHG Vent. Rate : 083 BPM Atrial Rate : 083 BPM P-R Int : 178 ms QRS Dur : 092 ms QT Int : 390 ms P-R-T Axes : 056 042 032 degrees QTc Int : 458 ms Normal sinus rhythm Normal ECG Confirmed by GATO CARBALLO, ELIEZER ([id number]), deputy editor in chief TORRES HEATH ([id number]) on 03/09/2020 11:44:15 AM Referred By: ERICK Confirmed By:ELIEZER HOSKINS MD
--- NOTE | 2020-03-02 16:00 | RAD_ITS ---
STUDY: X-RAY CHEST REASON FOR EXAM: Male, 24 years old. SOB, COUGH, CHEST PAIN TECHNIQUE: Single AP portable view of the chest. COMPARISON: None. FINDINGS: The lungs are clear and expanded. There is no demonstrated pleural abnormality. Normal size heart. Normal mediastinum and will. Normal visualized pulmonary arteries. Normal visualized aortic arch and descending thoracic aorta. Normal visualized thoracic spine. Normal visualized ribs, clavicles, and shoulders. There is no demonstrated abnormality of the visualized soft tissue structures of the upper abdomen. RAD/Chest 1 View (Portable) IMPRESSION: Normal x-ray examination of the chest. Electronically Signed: Katy Martínez MD at 16:38 EDT Tel , Service support ,
--- NOTE | 2020-03-02 16:02 | ED.VIS.GEN ---
History of Present Illness Chief Complaint: Shortness of Breath Informant: Patient Narrative: 24-year-old male with no significant past medical history presents with concern for cough. States he developed a cough yesterday evening. States it is worsened throughout the day. Was concern for chest pain or shortness of breath. States the cough has been nonproductive. Denies any fever, chills, nausea, vomiting, diaphoresis. Patient is on hormone therapy. Most recent surgery was 6 years ago gender reassignment. Past Medical History - Allergies and Home Meds Allergies/Adverse Reactions: Allergies No Known Allergies Allergy (Verified 02/24/20 10:24) Primary Care Physician: Care Physician,No Primary [Primary Care Provider] - Past Medical History: None Surgical History: noncontributory Lives: Alone Smoking Status: Current every day smoker Review of Systems General: Denies: Chills, Fever, Sweats Eyes: Denies: Visual changes - bilaterally, Diplopia ENT: Denies: Rhinorrhea, Sore throat Cardiovascular: Denies: Palpitations Respiratory: Reports: Dyspnea, Cough. Denies: Dyspnea on exertion Gastrointestinal: Denies: Abdominal pain, Nausea, Vomiting, Diarrhea, Melena, Hematochezia Genitourinary: Denies: Dysuria, Hematuria, Frequency Musculoskeletal: Denies: Back pain, Extremity Pain Skin: Denies: Rash, Wounds Neurological: Denies: Headache, Weakness, Numbness Physical Exam Vital Signs/Narrative: Vital Signs Temp Pulse Resp BP Pulse Ox 03/02/20 15:30 97.3 F L 93 18 160/102 H 97 03/02/20 15:28 97.3 F L 89 18 160/102 H 97 Inital Vital Signs reviewed: Yes General: Well nourished, Well developed, No Acute Distress Head: Normocephalic, Atraumatic Eyes: Perrl, EOMI ENT: Moist mucous membranes, No rhinorrhea Neck: Supple, Nontender Cardiovascular: Regular rate, Regular rhythm, No murmurs Respiratory: No distress, CTA bilaterally, Chest nontender Abdomen: Soft, Nontender, Nondistended, Normal bowel sounds Back: Nontender, Normal Inspection Extremities: Nontender, No edema Skin: Normal color, No rash Neurological: Alert, Oriented x3, Cranial nerves II-XII grossly intact, Normal Strength, Normal Sensation Psychological: Normal affect, Normal Mood Diagnostic/Tx/Re-eval Chest X-Ray - ED: 1 View, Normal - Rhythm Strip Rhythm Strip: Sinus Rhythm Rate: 83 Ectopy: None - EKG Initial EKG Interpretation: Sinus Rhythm - Sinus rhythm at 83 bpm. OR interval 178 ms. QTC of 458 ms. No evidence of ST elevation or depression at this time. - Medical Decision Making Patient appears well nontoxic. Vital signs within normal limits. EKG nonischemic. Chest x-ray negative. Coronavirus testing will be done as an outpatient. Patient advised to self quarantine. Asked return for shortness of breath. Patient agreeable and discharged home in stable condition. Impression: 1. URI 2. Dyspnea ED Disposition - Plan for ED Patient: Disposition: Home or Assisted Living Instructions: ED Upper Resp Infec No Abx Tx Referrals: Braxton Gloria MD [STAFF PHYSICIAN] - 2 Days Additional Instructions: Please return for increasing shortness of breathe or chest pain.
== END 2020-03-02 17:40 | disposition home or self-care (01) ==
PROVIDERS: Emergency Provider Emergency Medicine
DX: J06.9 Acute upper respiratory infection, unspecified (principal); F17.200 Nicotine dependence, unspecified, uncomplicated
CPT/HCPCS: 71045; 87635; 93005; 99282; U0003

== ENCOUNTER 2022-04-27 19:43 | Emergency (ER) | payer SELFPAY ==
[2022-04-27 19:43] VITALS: BP 152/97; PULSE 116; RESP 16; TEMP 38.4; O2SAT 98; BMI 56.9
--- NOTE | 2022-04-27 19:58 | EX.ED.VIS.UR ---
HPI HPI - URI History of Present Illness Chief Complaint: Sore Throat Detail of Chief Complaint: Fever and body aches. Informant: patient Onset/Context/Timing Onset: Today and Hours Context: Gradual Onset Timing: Continuous Current Severity: Mild Maximum Severity: Mild Associated Symptoms Associated Symptoms: Positive for Nasal Congestion and Myalgias; Negative for Nausea, Vomiting, Diarrhea, Shortness of Breath, Chest Pain, Nonproductive cough, Hemoptysis or Productive Cough Narrative Narrative: 26-year-old male no seen past medical history. Said today he woke up he just was not feeling well. Sore throat. He denies any nausea, vomiting or diarrhea. He has had fever, chills and body aches. Temperature as high as 1012. Denies any abdominal pain. He is able to swallow. No earache. Prior similar symptoms: Yes Recent Illness/Hospitalization: No ROS ROS ED ROS Narrative Fever, chills, body aches and sore throat. Review of Systems ROS Unobtainable: Denies due to encephalopathy Constitutional Constitutional ED: Reports chills, fever(s) and subjective Eyes Eyes: Denies blurry vision ENT ENT ED: Reports sore throat; Denies ear pain Cardiovascular Cardiovascular: Denies chest pain Respiratory/Chest Respiratory/Chest: Denies cough or dyspnea Gastrointestinal Gastrointestinal: Denies abdominal pain, constipation, diarrhea, melena, nausea or vomiting Genitourinary Genitourinary ED: Denies dysuria or hematuria Musculoskeletal Musculoskeletal: Denies arthralgias or back pain Integumentary Denies abscess or Abrasions Neurologic Neurologic: Denies headache(s) Psychiatric Psychiatric: Denies anxiety Endocrine Endocrinology: Denies cold intolerance Hematologic/Lymphatic Hematologic/Lymphatic: Denies easy bleeding Allergic/Immunologic Allergic/Immunologic ED: Denies mouth swelling or tongue swelling PFSH PFS Medical History Chest pain Chronic neck and back pain Difficulty balancing Fatigue Severe headache Shortness of breath Shoulder pain Home Medications estradiol 2 mg tablet 2 mg PO BID 12/13/19 [History Last Taken Unknown] Allergy/AdvReac Type Severity Reaction Status Date / Time No Known Allergies Allergy Verified 04/27/22 19:45 Social History Smoking Status: Current every day smoker tobacco type: cigarettes alcohol intake: never EXAM Physical Exam Narrative Exam Narrative: 26-year-old male no acute distress vital signs stable afebrile. He does have a fever of one 1.2. He will be treated with Tylenol. Pulse ox 98% on room air no signs hypoxia. H EENT exam mild erythema posterior pharynx. No significant swelling. Tonsils not significantly large. No not touching. No peritonsillar abscess. No stridor or drooling. No trouble swallowing. TM normal. Right obscured by wax. Neck nontender. No meningismus. No lymphadenopathy. Lungs clear to auscultation bilaterally. Heart tachycardic no murmur. Abdomen soft nontender. Moving all 4 extremities. Calves are nontender without edema or cords. Skin no rashes. Neurologically is awake and alert with no focal motor deficits. He does not appear septic or toxic. Const Vital Signs: 04/27/22 19:43 04/27/22 20:07 Temperature 101.2 F H Temperature Source Temporal Pulse Rate 116 H Respiratory Rate 16 Respiratory Effort Normal Respiratory Pattern Normal Blood Pressure 152/97 H Blood Pressure Mean 115 Pulse Ox 98 Oxygen Delivery Method Room Air Positive well nourished, well developed and obese; Negative for cachectic or contractures General Appearance ED: well developed and NAD; Negative for cachectic, contractures, cyanotic, diaphoretic or pallor Nutritional Appearance: obese; Negative for cachectic HEENT Reports moist mucous membranes; Denies dry mucous membranes HEENT Narrative: Mild posterior pharyngeal erythema. No exudate. No PACKAGE DRIER. No trouble swallowing or breathing. normocephalic Face and Sinus: Negative for sinus tenderness Mouth ED: No dry mucous membranes Mouth: No dry mucous membranes Teeth and Gingiva: Negative for caries Throat: posterior oropharynx abnormal Positive for edema and erythema; Negative for exudates, laceration or foreign body; Negative for posterior oropharynx normal Eyes PERRL and EOMs intact bilaterally General Eye ED: Negative for pale conjunctiva or scleral icterus Neck no lymphadenopathy, supple, no meningeal signs and no JVD General: Negative for anterior neck swelling or lymphadenopathy Resp normal respiratory effort and clear to auscultation bilaterally Effort and Inspection: Negative for retractions Auscultation: Negative for rales, rhonchi or wheezes Cardio S1 normal heart sound, S2 normal heart sound and no murmurs Rate: regular rate and tachycardic; Negative for bradycardia Rhythm: regular rhythm; Negative for abnormal rhythm GI non-tender, non-distended and no masses Inspection: Negative for abdominal distention Auscultation: normoactive bowel sounds Palpation: soft; Negative for tender or guarding Back/Spine no CVA tenderness General Back: Negative for CVA tenderness Cervical Spine: Negative for cervical spine tenderness Thoracic Spine / Upper Back: Negative for thoracic spinal tenderness Lumbar Spine / Lower Back: Negative for lumbar spinal tenderness Sacrum: Negative for tenderness Extremity normal to inspection and full ROM General Extremety ED: Negative for cyanosis or tenderness General Extremity: Negative for cyanosis Neuro oriented x3, CN's II-XII intact bilaterally and no sensory deficits noted Sensorium / Orientation: alert, oriented to person, oriented to place and oriented to time; Negative for orientation impaired, lethargic or stuporous Motor Exam: strength 5/5 throughout; Negative for general weakness or strength abnormal Psych mental status grossly normal Appearance: Negative for other Attitude: No agitated Mood & Affect: Negative for depressed, anxious or tearful Skin General Skin Exam: Negative for jaundice or pallor Lesions: no lesions Rashes: no rashes Trauma: Negative for abrasion or laceration MDM MDM MDM Narrative Medical decision making narrative: 26-year-old male most likely viral syndrome. Treated with Tylenol here. I will send a rapid strep and check it if is positive I will call him in a prescription but again most likely this is a virus. Discharged home. Fluids and rest. Tylenol Motrin. Follow-up with not improving return if worse. Lab Data Attestation: I reviewed the patient's lab results. Lab results narrative: Rapid strep test is negative. I checked it at 10:17 PM. Discharge Plan Triage Chief Complaint: Sore Throat ED Provider: Kenyon Dinh Dx/Rx/DC Orders Clinical Impression: Fever, Viral syndrome Instructions: ED Viral Syndrome (Adult) Prescriptions: No Action estradiol 2 MG tablet 2 mg PO BID Primary Care Provider: Care Physician,No Primary Referrals: Kwadwo Keller MD [Med Staff - Clinical Dermatologist] - 1 Week if not improving Care Physician,No Primary [Primary Care Provider] - Activity Restrictions/Additional Instructions: We will do strep if that is positive I will call you and call in a prescription if its negative I will not call you. Plenty of fluids and rest. Alternate Motrin and Tylenol for fever. Warm salt water gargling. Chloraseptic spray to help with the sore throat. You should progressively start feeling better in several days. If you are getting worse or not improving follow-up with your primary care physician or return. Disposition Disposition: Home, Self Care Discharge Date/Time: 04/27/22 20:13
[2022-04-27] MEDS: Acetaminophen 500 MG Tablet 1000 MG PO (20:03)
== END 2022-04-27 20:13 | disposition home or self-care (01) ==
PROVIDERS: Emergency Provider Emergency Medicine; Visit Provider Emergency Medicine
DX: B34.9 Viral infection, unspecified (principal); R50.9 Fever, unspecified
CPT/HCPCS: 87880; 99283